=== PATIENT | female | born 1950 | race Caucasian/White ===

== ENCOUNTER → 2019-04-02 09:57 | Outpatient (CLI) | payer MEDICARE, SELFPAY ==
--- NOTE | 2019-04-02 | DI.RAD.S_ITS ---
PROCEDURE: XR SHOULDER LT MIN 2V INDICATIONS: Shoulder pain on the left TECHNIQUE: 3 views of the shoulder were acquired. COMPARISON: None. FINDINGS: Bones: No fractures or dislocations. No suspicious bony lesions. Visualized ribs appear intact. Soft tissues: No suspicious soft tissue calcifications. IMPRESSION: A small degree of a.c. joint osteoarthritis is present but no acute trauma or traumatic subluxation is seen. Dictated by: Demario Huff M.D. on 04/02/2019 at 11:10 Approved by: Demario Huff M.D. on 04/02/2019 at 11:10
--- NOTE | 2019-04-02 | DI.RAD.S_ITS ---
PROCEDURE: XR HIP W PEL IF DONE RT 2V INDICATIONS: hip pain TECHNIQUE: AP pelvis with lateral view(s) of the right hip(s). COMPARISON: [facility], , PELVIC COMPLETE, 08/01/2017, 11:33. FINDINGS: Bones: No fractures or dislocations. Pelvic ring appears intact. No suspicious bony lesions. Soft tissues: The visualized bowel gas pattern is normal. No suspicious soft tissue calcifications. IMPRESSION: No trauma to the right hip, mild symmetric hip joint osteoarthritis from the comparison plain film imaging present bilaterally. Dictated by: Demario Huff M.D. on 04/02/2019 at 11:11 Approved by: Demario Huff M.D. on 04/02/2019 at 11:12
--- NOTE | 2019-04-02 | DI.CT.S_ITS ---
PROCEDURE: CT HEAD/BRAIN WO/W CON INDICATIONS: vertigo TECHNIQUE: 4.5 mm thick angled axial sections acquired from the foramen magnum to the vertex before and after the administration of intravenous contrast, with coronal and sagittal reformats. For radiation dose reduction, the following was used: automated exposure control, adjustment of mA and/or kV according to patient size. COMPARISON: None. FINDINGS: Image quality: There is streak artifact seen. CSF Spaces: Basal cisterns are patent. No extra-axial fluid collections. Ventricles are normal in size and shape. Brain: Right sided aneurysm clips are seen, with associated streak artifact. There is a focus of brain parenchymal volume loss is seen involving the posterior right frontal lobe, surrounding encephalomalacia/gliotic change. No midline shift. No intracranial bleeds or masses. No abnormal intracranial enhancement. Johnson-white interface appears normal. Skull and face: Right sided craniotomy changes are seen. Calvarium and visualized facial bones appear intact, without suspicious lesions. Sinuses: Visualized sinuses and mastoids are clear. IMPRESSION: No acute abnormality is seen. No abnormal enhancement is seen. No masses are seen. Right frontal lobe brain parenchymal volume loss with surrounding encephalomalacia/gliotic change seen. 3 right-sided aneurysm clips are seen. Dictated by: Adin Killian M.D. on 04/02/2019 at 12:02 Approved by: Adin Killian M.D. on 04/02/2019 at 12:05
--- NOTE | 2019-04-02 | DI.RAD.S_ITS ---
PROCEDURE: XR FOOT LT MIN 3V INDICATIONS: foot pain TECHNIQUE: 3 views of the foot were acquired. COMPARISON: [facility], CR, FOOT 2V LEFT, 05/07/2014, 17:37. FINDINGS: Bones: No previously unidentified fractures or dislocations, and the prior fractures across the distal diaphysis of the third fourth and fifth metatarsal bones have healed with no worsening of malalignment previously present.. No suspicious bony lesions. Soft tissues: No tibiotalar joint effusion. Achilles tendon appears normal. IMPRESSION: The patient has suffered prior fractures across the distal metatarsal bones of the third, fourth and fifth rays. The most prominently displaced fracture was at the fifth metatarsal and angulation abnormality during healing is preserved on the current study is same degree that was present acutely. This could predispose to pain, however. Dictated by: Demario Huff M.D. on 04/02/2019 at 11:12 Approved by: Demario Huff M.D. on 04/02/2019 at 11:14
[2019-04-02 11:53] LABS: Blood Urea Nitrogen 20 mg/dL (7-17); Calcium 9.5 mg/dL (8.4-10.2); Carbon Dioxide 28 mmol/L (22-32); Chloride 103 mmol/L (98-107); Estimated Glomerular Filt Rate > 60.0 mL/min (>60); Glucose 215 mg/dL (80-110); HEMOLYSIS < 15 (0-50); Potassium 4.7 mmol/L (3.4-5.1); Sodium 140 mmol/L (137-145)
== END ==
PROVIDERS: Family Provider Family Medicine; PCP Family Medicine; Visit Provider Family Medicine
DX: C54.1 Malignant neoplasm of endometrium (principal); R42 Dizziness and giddiness; M25.512 Pain in left shoulder; M19.012 Primary osteoarthritis, left shoulder; M25.551 Pain in right hip; M16.11 Unilateral primary osteoarthritis, right hip; M79.672 Pain in left foot; G89.29 Other chronic pain; Z87.81 Personal history of (healed) traumatic fracture
CPT/HCPCS: 36415; 70470; 73030; 73502; 73630; 80048; Q9967

== ENCOUNTER 2019-05-13 23:10 | Inpatient (IN) | payer MEDICARE, SELFPAY ==
--- NOTE | 2019-05-13 23:13 | DI.CT.S_ITS ---
PROCEDURE: CT HEAD/BRAIN WO CON INDICATIONS: stroke symptoms, history of prior stroke TECHNIQUE: Noncontrast 4.5 mm thick angled axial sections acquired from the foramen magnum to the vertex, with coronal and sagittal reformats. For radiation dose reduction, the following was used: automated exposure control, adjustment of mA and/or kV according to patient size. COMPARISON: [facility], CT, CT HEAD/BRAIN WO/W CON, 04/02/2019, 12:11. FINDINGS: Image quality: Excellent. CSF spaces: Basal cisterns are patent. No extra-axial fluid collections. The ventricles are stable in size and shape. There is expected postsurgical change of aneurysm clipping on the right and craniotomy over the temporal region with underlying encephalomalacia associated with prior presumed hemorrhagic stroke in that area. Brain: No intracranial bleeds or masses. There is cerebral volume loss for age, with resultant ventricular and sulcal prominence. There are periventricular and deep white matter chronic small vessel ischemic changes. There is intracranial internal carotid artery atherosclerosis. Skull and face: Calvarium and visualized facial bones appear intact, without suspicious lesions. Sinuses: Visualized sinuses and mastoids are clear. IMPRESSION: No new abnormality is found, no new hemorrhage is identified. Stable postsurgical changes of aneurysm clipping and also stable appearance of previously present moderately severe right hemispheric encephalomalacia after presumed aneurysm related hemorrhagic stroke. Dictated by: Demario Huff M.D. on 05/14/2019 at 1:09 Approved by: Demario Huff M.D. on 05/14/2019 at 1:11
[2019-05-13 23:18] VITALS: BP 164/93; PULSE 99; RESP 16; TEMP 36.5; O2SAT 97; BMI 35.4
[2019-05-13 23:30] LABS: Add Manual Diff / Slide Review NO; Basophils Absolute Auto 100 /uL (0-100); Basophils Percent Auto 0.6 % (0-2); Eosinophils Absolute Auto 200 /uL (0-450); Hematocrit 45.2 % (36-46); Hemoglobin 15.1 g/dL (12.0-16.0); Lymphocytes Absolute Auto 2400 /uL (1100-4500); Lymphocytes Percent Auto 23.8 % (25-40); Mean Corpuscular HGB Conc 33.4 % (30-36); Mean Corpuscular Hemoglobin 31.1 PG (26-34); Mean Corpuscular Volume 93.1 fL (80-100); Monocytes Absolute Auto 600 /uL (0-900); Monocytes Percent Auto 5.7 % (3-14); Neutrophils Absolute Auto 7000 /uL (1500-7000); Neutrophils Percent Auto 67.9 % (50-75); Platelet Count 277 X10^3/uL (150-400); Red Blood Cell Count 4.86 X10^6/uL (4.0-5.2); Red Cell Distribution Width 13.5 % (11.6-14.8); White Blood Cell Count 10.2 X10^3/uL (4.5-11.0)
[2019-05-13 23:36] LABS: Prothrombin Time 11.2 SECONDS (10.1-12.7)
[2019-05-13 23:39] LABS: PTT Partial Thromboplastin Tim 33 SECONDS (26.4-36.2)
[2019-05-13 23:40] LABS: BUN Creatinine Ratio 37.1 (6-22); Blood Urea Nitrogen 26 mg/dL (7-17); Calcium 9.1 mg/dL (8.4-10.2); Carbon Dioxide 31 mmol/L (22-32); Chloride 101 mmol/L (98-107); Estimated Glomerular Filt Rate > 60.0 mL/min (>60); Glucose 183 mg/dL (80-110); HEMOLYSIS < 15 (0-50); Potassium 4.7 mmol/L (3.4-5.1); Sodium 138 mmol/L (137-145)
--- NOTE | 2019-05-13 23:58 | ED.NEUROSD ---
HPI - Neuro Symptoms/Deficit General Chief Complaint: Neuro Symptoms/Deficit Stated Complaint: possible stroke - sent by [facility] Time Seen by Provider: 05/13/19 23:12 Source: patient Mode of arrival: ambulatory Limitations: no limitations History of Present Illness HPI Narrative: 69-year-old female nonsmoker with history of cerebral aneurysm status wrist repair and subsequent left-sided stroke symptoms from many years ago presents with new onset stroke symptoms noted upon waking this morning. She felt in her normal state of health last night and upon waking today noticed that she was speaking a bit different than normal and had a much more difficult time ambulating, as a consequence of left leg feeling funny. She denies any injuries nor fever or chills. It was not until this evening when her roommate came home that she decided to be seen. She did not meet stroke activation criteria Onset (ago): hour(s) Location: speech, left face and ataxia History of same: Yes Severity: moderate Quality: weak and tingling Relieving factors: none Exacerbating factors: none On Anticoagulants: No Associated symptoms: denies other symptoms Treatments Prior to Arrival: none Related Data Home Medications Medication Instructions Recorded Confirmed Lidocaine Pain Relief 1 patch TOPICAL DAILY PRN 05/14/19 05/14/19 acetaminophen [Tylenol Extra 1,000 mg PO TID 05/14/19 05/14/19 Strength] cyclobenzaprine 1 tab PO BID PRN 05/14/19 05/14/19 hydrocodone-acetaminophen 1 tab PO Q6HP PRN 05/14/19 05/14/19 hydrocodone-acetaminophen 1 tab PO Q6HP PRN 05/14/19 05/14/19 Previous Rx's Medication Instructions Recorded naproxen 1 tab PO BIDCC #60 tab 10/19/16 venlafaxine 225 mg PO QDAY #270 tab 10/19/16 gabapentin [Neurontin] 400 cap PO SEE INSTRUCTIONS #150 04/18/17 cap aspirin 81 mg PO DAILY #30 tab 05/14/19 atorvastatin 40 mg PO BEDTIME #30 tab 05/14/19 Allergies Allergy/AdvReac Type Severity Reaction Status Date / Time phenytoin [From DILANTIN] Allergy Mild hives Verified 05/13/19 23:22 TB skin test Allergy Mild skin Uncoded 01/04/18 12:26 reaction Review of Systems Constitutional Denies chills, Denies fever(s), Denies lethargy and Denies weakness Eyes Denies change in vision, Denies eye discharge, Denies irritation and Denies loss of vision ENT Ears, Nose, Mouth, and Throat: Denies change in voice, Denies neck pain and Denies sore throat Cardiovascular Denies chest pain, Denies irregular heart rhythm, Denies lightheadedness, Denies palpitations, Denies dyspnea, Denies dyspnea on exertion and Denies orthopnea Respiratory Denies cough, Denies dyspnea, Denies dyspnea on exertion and Denies wheezing Gastrointestinal Gastrointestinal: Denies abdominal pain, Denies change in bowel habits, Denies diarrhea, Denies nausea and Denies vomiting Genitourinary Denies hematuria, Denies flank pain, Denies urinary incontinence and Denies urinary urgency Musculoskeletal Denies neck pain Integumentary/Breasts Denies pruritus, Denies erythema, Denies rash and Denies wounds Neurologic Denies confusion, Denies loss of vision and Denies weakness Psychiatric Denies anxiety, Denies confusion, Denies depression, Denies homicidal ideation and Denies suicidal ideation Endocrine Denies palpitations Hematologic/Lymphatic Denies easy bruising Allergic/Immunologic Denies wheezing FOR[facility]LY [facility] Medical History Chronic back pain (Chronic 1966) Depression (Chronic 2002) Foot pain (Chronic 2013) Hayfever (Chronic 1974) History of stroke with current residual effects (Chronic 04/18/01) Lichen sclerosus et atrophicus of the vulva (Chronic) Lumbar spine pain (Chronic) Migraines (Chronic ~1989) Osteoporosis (Chronic) Peripheral neuropathy (Chronic) Radiculopathy (Chronic) Urinary incontinence (Chronic 2000) Vertigo, central (Chronic 2000) Cataracts, bilateral (Resolved) Cerebral aneurysm (Resolved 04/18/01) Chicken pox (Resolved ~1954) Colon polyps (Resolved 2000) 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) Fractures (Resolved 2013) Measles (Resolved ~1954) Mumps (Resolved ~1954) PMB (postmenopausal bleeding) (Resolved ~2009) Rubella (Resolved ~1954) Surgical History History of colonoscopy with polypectomy (Resolved 2000) History of craniotomy (Resolved 04/18/01) History of phacoemulsification of cataract of left eye with intraocular lens implantation (Resolved 11/15/17) History of phacoemulsification of cataract of right eye with intraocular lens implantation (Resolved 11/01/17) History of total hysterectomy with bilateral salpingo-oophorectomy (BSO) (Resolved 09/28/17) S/P total hysterectomy and bilateral salpingo-oophorectomy (Resolved ~09/28/17) Social History household members: friend(s) Smoking Status: Current every day smoker Family History (Updated 05/14/19 @ 02:28 by ARELI Rod) Father Lung disease Mother Colon cancer Sister Diabetes mellitus Uterine cancer Son No problems noted. Social History household members: friend(s) Smoking Status: Current every day smoker Exam Narrative Exam Narrative: GENERAL: [69] year old patient appears stated age. Well-nourished, well-developed patient, in mild distress. HEAD: Atraumatic. Normocephalic. EYES: Pupils equal round and reactive. Extraocular motions intact. No scleral icterus. No injection or drainage. ENT: Nose without bleeding, purulent drainage. Throat without erythema, tonsillar hypertrophy or exudate. Airway patent. NECK: Trachea midline. Non tender CARDIOVASCULAR: Regular rate and rhythm without murmurs, gallops, or rubs. RESPIRATORY: Clear to auscultation. Breath sounds equal bilaterally. No wheezes, rales, or rhonchi. GASTROINTESTINAL: Abdomen soft, non-tender, nondistended. EXTREMITIES: No edema or joint tenderness. BACK: Nontender without deformity or crepitance. No flank tenderness. NEURO: AOx3. SKIN: No rash or erythema of visible areas Initial Vital Signs Initial Vital Signs: Vital Signs Temperature 97.7 F 05/13/19 23:18 Pulse Rate 99 H 05/13/19 23:18 Respiratory Rate 16 05/13/19 23:18 Blood Pressure 164/93 H 05/13/19 23:18 Pulse Oximetry 97 05/13/19 23:18 Scores NIH Stroke Scale Level of Conciousness: Alert, keenly responsive Ask month/age: Answers both questions correctly. Open/close eyes, close hand: Performs both tasks correctly Best gaze horizontal: Normal Visual valenzuela: No visual loss Facial palsy: Minor paralysis, flattened nasolabial fold, asymmetry on smiling Left arm drift: Drifts down, not to bed Right arm drift: No drift for full 10 sec Left leg drift: No drift for full 10 sec Right leg drift: No drift for full 10 sec Limb ataxia: Present in one limb Sensory on face/arms/legs: Mild to moderate sensory loss, can tell touch Best language: No aphasia, normal Dysarthria: Mild to mod,some slurring Extinction or inattention: No abnormality Total NIH Stroke scale score: 5 Course Orders Ordered: ED Orders 05/14/19 10:54 CT angio neck Urgent Discontinued Medications Hydrocodone Bitart/Acetaminophen ([place] 10/325) 1 tab PO NOW ONE Stop: 05/14/19 15:27 Last Admin: 05/14/19 15:37 Dose: 1 tab Aspirin (Aspirin Chew) 324 mg PO NOW ONE Stop: 05/14/19 00:27 Last Admin: 05/14/19 00:46 Dose: Not Given Aspirin (Aspirin Ec) 81 mg PO DAILY [facility] Last Admin: 05/14/19 09:18 Dose: Not Given Atorvastatin Calcium (Lipitor) 20 mg PO BEDTIME [facility] Hydromorphone HCl (Dilaudid) 0.5 mg IV Q6H PRN PRN Reason: Pain, Moderate (4-6) Hydromorphone HCl (Dilaudid) 1 mg IV Q6HR PRN PRN Reason: Pain, Severe (7-10) Last Admin: 05/14/19 09:19 Dose: 1 mg Admin: 05/14/19 02:38 Dose: 1 mg Sodium Chloride (Normal Saline 0.9%) 1,000 mls @ 125 mls/hr IV CONT [facility] Last Admin: 05/14/19 10:35 Dose: 125 mls/hr Infusion: 05/14/19 09:22 Dose: 125 mls/hr Infusion: 05/14/19 02:34 Dose: 125 mls/hr Infusion: 05/14/19 01:47 Dose: 0 mls/hr Admin: 05/14/19 00:47 Dose: 150 mls/hr Labetalol HCl (Trandate) 10 mg IV Q4HR PRN PRN Reason: Hypertension Naloxone HCl (Narcan) 0.2 mg IV Q2MIN PRN PRN Reason: Opiate Reversal Ondansetron HCl (Zofran) 4 mg IV Q8HR PRN PRN Reason: Nausea And Vomiting Oxycodone HCl (Percolone) 10 mg PO NOW ONE Stop: 05/14/19 15:10 Venlafaxine HCl (Effexor Xr) 225 mg PO DAILY [facility] Last Admin: 05/14/19 15:05 Dose: 225 mg Vital Signs - 8 hr 05/14/19 10:28 05/14/19 14:10 05/14/19 15:30 Temperature 98.2 F Pulse Rate 73 Respiratory Rate 18 Blood Pressure 198/106 H Pulse Oximetry 95 95 97 MDM - Neuro Symptoms/Deficit Lab Data Result diagrams: 05/13/19 23:20 05/14/19 05:45 Lab Results 05/13/19 05/13/19 05/13/19 Range/Units 23:20 23:20 23:20 WBC 10.2 (4.5-11.0) X10^3/uL RBC 4.86 (4.0-5.2) X10^6/uL Hgb 15.1 (12.0-16.0) g/dL Hct 45.2 (36-46) % MCV 93.1 (80-100) fL MCH 31.1 (26-34) PG MCHC 33.4 (30-36) % RDW 13.5 (11.6-14.8) % Plt Count 277 (150-400) X10^3/uL Neut % (Auto) 67.9 (50-75) % Lymph % (Auto) 23.8 L (25-40) % [place]kin % (Auto) 5.7 (3-14) % Eos % (Auto) 2.0 (2-4) % Baso % (Auto) 0.6 (0-2) % Neut # (Auto) 7000 (9165-9020) /uL Lymph # (Auto) 2400 (7383-2622) /uL L[place]kin # (Auto) 600 (0-900) /uL Eos # (Auto) 200 (0-450) /uL Baso # (Auto) 100 (0-100) /uL PT 11.2 (10.1-12.7) SECONDS INR 1.0 (0.9-1.3) APTT 33 (26.4-36.2) SECONDS Sodium 138 (137-145) mmol/L Potassium 4.7 (3.4-5.1) mmol/L Chloride 101 (98-107) mmol/L Carbon Dioxide 31 (22-32) mmol/L BUN 26 H (7-17) mg/dL Creatinine 0.70 (0.52-1.04) mg/dL Estimated GFR > 60.0 (>60) mL/min BUN/Creatinine Ratio 37.1 H (6-22) Glucose 183 H (80-110) mg/dL Hemoglobin A1c (4.0-6.0) % Calcium 9.1 (8.4-10.2) mg/dL Total Bilirubin (0.2-1.3) mg/dL AST (14-36) IU/L ALT (9-52) IU/L Alkaline Phosphatase (38-126) U/L Total Protein (6.3-8.2) g/dL Albumin (3.5-5.0) g/dL Globulin (1.7-4.1) g/dL Albumin/Globulin Ratio (1.0-2.8) Triglycerides (35-150) mg/dL Cholesterol (140-199) mg/dL LDL Cholesterol, Calc (<100) mg/dL HDL Cholesterol (40-60) mg/dL 05/14/19 05/14/19 Range/Units 05:45 05:45 WBC (4.5-11.0) X10^3/uL RBC (4.0-5.2) X10^6/uL Hgb (12.0-16.0) g/dL Hct (36-46) % MCV (80-100) fL MCH (26-34) PG MCHC (30-36) % RDW (11.6-14.8) % Plt Count (150-400) X10^3/uL Neut % (Auto) (50-75) % Lymph % (Auto) (25-40) % [place] % (Auto) (3-14) % Eos % (Auto) (2-4) % Baso % (Auto) (0-2) % Neut # (Auto) (7086-2060) /uL Lymph # (Auto) (6990-2338) /uL Lumpkin # (Auto) (0-900) /uL Eos # (Auto) (0-450) /uL Baso # (Auto) (0-100) /uL PT (10.1-12.7) SECONDS INR (0.9-1.3) APTT (26.4-36.2) SECONDS Sodium 139 (137-145) mmol/L Potassium 4.4 (3.4-5.1) mmol/L Chloride 104 (98-107) mmol/L Carbon Dioxide 29 (22-32) mmol/L BUN 20 H (7-17) mg/dL Creatinine 0.60 (0.52-1.04) mg/dL Estimated GFR > 60.0 (>60) mL/min BUN/Creatinine Ratio 33.3 H (6-22) Glucose 136 H (80-110) mg/dL Hemoglobin A1c 7.5 H (4.0-6.0) % Calcium 8.5 (8.4-10.2) mg/dL Total Bilirubin 0.7 (0.2-1.3) mg/dL AST 29 (14-36) IU/L ALT 33 (9-52) IU/L Alkaline Phosphatase 80 (38-126) U/L Total Protein 6.5 (6.3-8.2) g/dL Albumin 3.6 (3.5-5.0) g/dL Globulin 2.9 (1.7-4.1) g/dL Albumin/Globulin Ratio 1.2 (1.0-2.8) Triglycerides 266 H (35-150) mg/dL Cholesterol 213 H (140-199) mg/dL LDL Cholesterol, Calc 130 H (<100) mg/dL HDL Cholesterol 30 L (40-60) mg/dL Imaging Data CT scan - head: Radiologist's impression: Lesley Finney 69 F 1950 [place] [address] CT Scan Report Signed Patient: Lesley FinneyMR#: [id number] : 8Acct:[id number] Age/Sex: 69 / FDate of Service: 05/13/19 Loc: [id number]-0 Accession Number: [id number] Procedure: CT head/brain wo con Ordering Provider: Waqas Hess D.O. PROCEDURE: CT HEAD/BRAIN WO CON INDICATIONS: stroke symptoms, history of prior stroke TECHNIQUE: Noncontrast 4.5 mm thick angled axial sections acquired from the foramen magnum to the vertex, with coronal and sagittal reformats. For radiation dose reduction, the following was used: automated exposure control, adjustment of mA and/or kV according to patient size. COMPARISON: [facility], CT, CT HEAD/BRAIN WO/W CON, 04/02/2019, 12:11. FINDINGS: Image quality: Excellent. CSF spaces: Basal cisterns are patent. No extra-axial fluid collections. The ventricles are stable in size and shape. There is expected postsurgical change of aneurysm clipping on the right and craniotomy over the temporal region with underlying encephalomalacia associated with prior presumed hemorrhagic stroke in that area. Brain: No intracranial bleeds or masses. There is cerebral volume loss for age, with resultant ventricular and sulcal prominence. There are periventricular and deep white matter chronic small vessel ischemic changes. There is intracranial internal carotid artery atherosclerosis. Skull and face: Calvarium and visualized facial bones appear intact, without suspicious lesions. Sinuses: Visualized sinuses and mastoids are clear. IMPRESSION: No new abnormality is found, no new hemorrhage is identified. Stable postsurgical changes of aneurysm clipping and also stable appearance of previously present moderately severe right hemispheric encephalomalacia after presumed aneurysm related hemorrhagic stroke. Dictated by: Demario Huff M.D. on 05/14/2019 at 1:09 Approved by: Demario Huff M.D. on 05/14/2019 at 1:11 Discharge Plan Departure Patient Disposition: Admitted As Inpatient Clinical Impression: Cerebrovascular accident Qualifiers: CVA mechanism: unspecified Qualified Code(s): I63.9 - Cerebral infarction, unspecified Discharge Date/Time: 05/14/19 01:40 Interventions: ED Discharge Assessment Last Done: 05/14/19 01:21 Admit Date/Time: 05/14/19 00:49 Admit Provider: Champ Hanks
[2019-05-14] VITALS (10 sets, daily range): BP systolic 156–198; BP diastolic 65–106; PULSE 70–89; RESP 11–21; TEMP 36.6–36.8; O2SAT 94–99; BMI 35.4
--- NOTE | 2019-05-14 | DI.ECHO.S_ITS ---
[place] [facility]---------+ [facility] +---------+ : : [address] : : : : [id number] : : : : Phone: [phone]+ Echocardiogram Report + + :Name: EASTON GARZA Study Date: 05/14/2019 Height: 64 in : :[facility] Weight: 200 lb : : Gender: Female BSA: 2.0 m2 : :: 1950 Age: 69 yrs BP: 181/76 mmHg: :Reason For Study: CVA : : Performed By: Karla Pruitt : :Referring: KRISTINE TOBIN : + + Interpretation Summary 1) Normal left ventricular thickness, size, wall motion, and systolic function (EF 60-65%). 2) Normal right ventricular size and function. 3) No significant valvular abnormalities. 4) Injection of contrast documented no interatrial shunt. 5) No prior Echo available for comparison. Procedure: A two-dimensional transthoracic echocardiogram with color flow and Doppler was performed. The study quality was technically adequate. There is no prior echocardiogram noted for this patient. The patient was in normal sinus rhythm during the exam. Left Ventricle: The left ventricle is normal in size, wall thickness, and systolic function without any focal wall motion abnormalities. The ejection fraction is estimated to be 60-65%. Septal bounce present. Diastolic parameters suggest a relaxation abnormality of the left ventricle, consistent with probable normal filling pressures. Right Ventricle: The right ventricle is not well visualized. Atria: The left atrium is moderately dilated. Right atrial size is normal. Injection of contrast documented no interatrial shunt. Mitral Valve: The mitral valve is normal in structure and function. There is no mitral regurgitation noted. Aortic Valve: The aortic valve opens well. There is no aortic valve stenosis. No aortic regurgitation is present. Tricuspid Valve: The tricuspid valve is normal in structure and function. There is trace tricuspid regurgitation. The right ventricular systolic pressure is estimated to be at least 16 mmHg based on an estimated right atrial pressure of 3 mm Hg. Pulmonic Valve: The pulmonic valve is not well visualized. Great Vessels: The aortic root is normal size. The dimensions of the ascending aorta are normal. The IVC is of normal diameter and collapses greater than 50% with a sniff. This suggests a low right atrial pressure of 3 mm Hg. Pericardium/ Pleura There is no pericardial effusion. There is no pleural effusion. MMode/2D Measurements & Calculations LVIDd: 5.3 cm Ao root diam: 3.2 cm LVIDs: 3.2 cm Aortic Jxn: 2.3 cm FS: 39.3 % asc Aorta Diam: 2.9 cm IVSd: 0.99 cm LVPWd: 0.80 cm LV castaneda. diameter/BSA (cm/m^2): 2.7 LV sys. diameter/BSA (cm/m^2): 1.7 LA dimension: 3.8 cm RA long axis: 4.6 cm LA A2 area: 21.5 cm2 RA area: 14.2 cm2 LA A4 area: 22.3 cm2 RA vol: 37.0 ml LA length (vol): 5.7 cm RA : 18.9 ml/m2 LA vol: 71.8 ml IVC diam: 1.9 cm LA vol index: 36.7 ml/m2 RVDd major: 4.3 cm RVD1 (basal): 2.7 cm RVD2 (mid): 2.1 cm Doppler Measurements & Calculations Ao V2 max: 136.9 cm/sec MV E max carlos: 72.4 cm/sec Ao V2 mean: 85.0 cm/sec MV A max carlos: 102.3 cm/sec Ao max P.5 mmHg MV E/A: 0.71 Ao mean P.5 mmHg Med Peak E' Carlos: 5.3 cm/sec Ao V2 VTI: 28.8 cm E/E' med: 13.7 Lat Peak E' Carlos: 8.0 cm/sec E/E' lat: 9.0 E/e' average: 11.4 MV dec time: 0.22 sec MV P1/2t: 66.0 msec TR max carlos: 180.3 cm/sec MV P1/2t max carlos: 72.8 cm/sec TR max P.0 mmHg MVA(P1/2t): 3.3 cm2 PA V2 max: 118.2 cm/sec PA V2 mean: 76.2 cm/sec PA mean P.7 mmHg PA Accel Time: 0.10 sec Reading Physician:12:12 PM
--- NOTE | 2019-05-14 00:01 | ED_ITS ---
HPI - Neuro Symptoms/Deficit General Chief Complaint: Neuro Symptoms/Deficit Stated Complaint: possible stroke - sent by [facility] Time Seen by Provider: 05/13/19 23:12 Source: patient Mode of arrival: ambulatory Limitations: no limitations History of Present Illness HPI Narrative: 69-year-old female nonsmoker with history of cerebral aneurysm status wrist repair and subsequent left-sided stroke symptoms from many years ago presents with new onset stroke symptoms noted upon waking this morning. She felt in her normal state of health last night and upon waking today noticed that she was speaking a bit different than normal and had a much more difficult time ambulating, as a consequence of left leg feeling funny. She denies any injuries nor fever or chills. It was not until this evening when her roommate came home that she decided to be seen. She did not meet stroke activation criteria Onset (ago): hour(s) Location: speech, left face and ataxia History of same: Yes Severity: moderate Quality: weak and tingling Relieving factors: none Exacerbating factors: none On Anticoagulants: No Associated symptoms: denies other symptoms Treatments Prior to Arrival: none Related Data Home Medications Medication Instructions Recorded Confirmed Lidocaine Pain Relief 1 patch TOPICAL DAILY PRN 05/14/19 05/14/19 acetaminophen [Tylenol Extra 1,000 mg PO TID 05/14/19 05/14/19 Strength] cyclobenzaprine 1 tab PO BID PRN 05/14/19 05/14/19 hydrocodone-acetaminophen 1 tab PO Q6HP PRN 05/14/19 05/14/19 hydrocodone-acetaminophen 1 tab PO Q6HP PRN 05/14/19 05/14/19 Previous Rx's Medication Instructions Recorded naproxen 1 tab PO BIDCC #60 tab 10/19/16 venlafaxine 225 mg PO QDAY #270 tab 10/19/16 gabapentin [Neurontin] 400 cap PO SEE INSTRUCTIONS #150 04/18/17 cap aspirin 81 mg PO DAILY #30 tab 05/14/19 atorvastatin 40 mg PO BEDTIME #30 tab 05/14/19 Allergies Allergy/AdvReac Type Severity Reaction Status Date / Time phenytoin [From DILANTIN] Allergy Mild hives Verified 05/13/19 23:22 TB skin test Allergy Mild skin Uncoded 01/04/18 12:26 reaction Review of Systems Constitutional Denies chills, Denies fever(s), Denies lethargy and Denies weakness Eyes Denies change in vision, Denies eye discharge, Denies irritation and Denies loss of vision ENT Ears, Nose, Mouth, and Throat: Denies change in voice, Denies neck pain and Denies sore throat Cardiovascular Denies chest pain, Denies irregular heart rhythm, Denies lightheadedness, Denies palpitations, Denies dyspnea, Denies dyspnea on exertion and Denies orthopnea Respiratory Denies cough, Denies dyspnea, Denies dyspnea on exertion and Denies wheezing Gastrointestinal Gastrointestinal: Denies abdominal pain, Denies change in bowel habits, Denies diarrhea, Denies nausea and Denies vomiting Genitourinary Denies hematuria, Denies flank pain, Denies urinary incontinence and Denies urinary urgency Musculoskeletal Denies neck pain Integumentary/Breasts Denies pruritus, Denies erythema, Denies rash and Denies wounds Neurologic Denies confusion, Denies loss of vision and Denies weakness Psychiatric Denies anxiety, Denies confusion, Denies depression, Denies homicidal ideation and Denies suicidal ideation Endocrine Denies palpitations Hematologic/Lymphatic Denies easy bruising Allergic/Immunologic Denies wheezing [facility], [facility] Medical History Chronic back pain (Chronic 1966) Depression (Chronic 2002) Foot pain (Chronic 2013) Hayfever (Chronic 1974) History of stroke with current residual effects (Chronic 04/18/01) Lichen sclerosus et atrophicus of the vulva (Chronic) Lumbar spine pain (Chronic) Migraines (Chronic ~1989) Osteoporosis (Chronic) Peripheral neuropathy (Chronic) Radiculopathy (Chronic) Urinary incontinence (Chronic 2000) Vertigo, central (Chronic 2000) Cataracts, bilateral (Resolved) Cerebral aneurysm (Resolved 04/18/01) Chicken pox (Resolved ~1954) Colon polyps (Resolved 2000) 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) Fractures (Resolved 2013) Measles (Resolved ~1954) Mumps (Resolved ~1954) PMB (postmenopausal bleeding) (Resolved ~2009) Rubella (Resolved ~1954) Surgical History History of colonoscopy with polypectomy (Resolved 2000) History of craniotomy (Resolved 04/18/01) History of phacoemulsification of cataract of left eye with intraocular lens implantation (Resolved 11/15/17) History of phacoemulsification of cataract of right eye with intraocular lens implantation (Resolved 11/01/17) History of total hysterectomy with bilateral salpingo-oophorectomy (BSO) (Resolved 09/28/17) S/P total hysterectomy and bilateral salpingo-oophorectomy (Resolved ~09/28/17) Social History household members: friend(s) Smoking Status: Current every day smoker Family History (Updated 05/14/19 @ 02:28 by ARELI Rod) Father Lung disease Mother Colon cancer Sister Diabetes mellitus Uterine cancer Son No problems noted. Social History household members: friend(s) Smoking Status: Current every day smoker Exam Narrative Exam Narrative: GENERAL: [69] year old patient appears stated age. Well- nourished, well-developed patient, in mild distress. HEAD: Atraumatic. Normocephalic. EYES: Pupils equal round and reactive. Extraocular motions intact. No scleral icterus. No injection or drainage. ENT: Nose without bleeding, purulent drainage. Throat without erythema, tonsillar hypertrophy or exudate. Airway patent. NECK: Trachea midline. Non tender CARDIOVASCULAR: Regular rate and rhythm without murmurs, gallops, or rubs. RESPIRATORY: Clear to auscultation. Breath sounds equal bilaterally. No wheezes, rales, or rhonchi. GASTROINTESTINAL: Abdomen soft, non-tender, nondistended. EXTREMITIES: No edema or joint tenderness. BACK: Nontender without deformity or crepitance. No flank tenderness. NEURO: AOx3. SKIN: No rash or erythema of visible areas Initial Vital Signs Initial Vital Signs: Vital Signs Temperature 97.7 F 05/13/19 23:18 Pulse Rate 99 H 05/13/19 23:18 Respiratory Rate 16 05/13/19 23:18 Blood Pressure 164/93 H 05/13/19 23:18 Pulse Oximetry 97 05/13/19 23:18 Scores NIH Stroke Scale Level of Conciousness: Alert, keenly responsive Ask month/age: Answers both questions correctly. Open/close eyes, close hand: Performs both tasks correctly Best gaze horizontal: Normal Visual valenzuela: No visual loss Facial palsy: Minor paralysis, flattened nasolabial fold, asymmetry on smiling Left arm drift: Drifts down, not to bed Right arm drift: No drift for full 10 sec Left leg drift: No drift for full 10 sec Right leg drift: No drift for full 10 sec Limb ataxia: Present in one limb Sensory on face/arms/legs: Mild to moderate sensory loss, can tell touch Best language: No aphasia, normal Dysarthria: Mild to mod,some slurring Extinction or inattention: No abnormality Total NIH Stroke scale score: 5 Course Orders Ordered: ED Orders 05/14/19 10:54 CT angio neck Urgent Discontinued Medications Hydrocodone Bitart/Acetaminophen ([place] 10/325) 1 tab PO NOW ONE Stop: 05/14/19 15:27 Last Admin: 05/14/19 15:37 Dose: 1 tab Aspirin (Aspirin Chew) 324 mg PO NOW ONE Stop: 05/14/19 00:27 Last Admin: 05/14/19 00:46 Dose: Not Given Aspirin (Aspirin Ec) 81 mg PO DAILY [facility] Last Admin: 05/14/19 09:18 Dose: Not Given Atorvastatin Calcium (Lipitor) 20 mg PO BEDTIME [facility] Hydromorphone HCl (Dilaudid) 0.5 mg IV Q6H PRN PRN Reason: Pain, Moderate (4-6) Hydromorphone HCl (Dilaudid) 1 mg IV Q6HR PRN PRN Reason: Pain, Severe (7-10) Last Admin: 05/14/19 09:19 Dose: 1 mg Admin: 05/14/19 02:38 Dose: 1 mg Sodium Chloride (Normal Saline 0.9%) 1,000 mls @ 125 mls/hr IV CONT [facility] Last Admin: 05/14/19 10:35 Dose: 125 mls/hr Infusion: 05/14/19 09:22 Dose: 125 mls/hr Infusion: 05/14/19 02:34 Dose: 125 mls/hr Infusion: 05/14/19 01:47 Dose: 0 mls/hr Admin: 05/14/19 00:47 Dose: 150 mls/hr Labetalol HCl (Trandate) 10 mg IV Q4HR PRN PRN Reason: Hypertension Naloxone HCl (Narcan) 0.2 mg IV Q2MIN PRN PRN Reason: Opiate Reversal Ondansetron HCl (Zofran) 4 mg IV Q8HR PRN PRN Reason: Nausea And Vomiting Oxycodone HCl (Percolone) 10 mg PO NOW ONE Stop: 05/14/19 15:10 Venlafaxine HCl (Effexor Xr) 225 mg PO DAILY [facility] Last Admin: 05/14/19 15:05 Dose: 225 mg Vital Signs - 8 hr 05/14/19 10:28 05/14/19 14:10 05/14/19 15:30 Temperature 98.2 F Pulse Rate 73 Respiratory Rate 18 Blood Pressure 198/106 H Pulse Oximetry 95 95 97 MDM - Neuro Symptoms/Deficit Lab Data Result diagrams: 05/13/19 23:20 05/14/19 05:45 Lab Results 05/13/19 05/13/19 05/13/19 Range/Units 23:20 23:20 23:20 WBC 10.2 (4.5-11.0) X10^3/uL RBC 4.86 (4.0-5.2) X10^6/uL Hgb 15.1 (12.0-16.0) g/dL Hct 45.2 (36-46) % MCV 93.1 (80-100) fL MCH 31.1 (26-34) PG MCHC 33.4 (30-36) % RDW 13.5 (11.6-14.8) % Plt Count 277 (150-400) X10^3/uL Neut % (Auto) 67.9 (50-75) % Lymph % (Auto) 23.8 L (25-40) % [place] % (Auto) 5.7 (3-14) % Eos % (Auto) 2.0 (2-4) % Baso % (Auto) 0.6 (0-2) % Neut # (Auto) 7000 (6747-8844) /uL Lymph # (Auto) 2400 (1683-7088) /uL [place] # (Auto) 600 (0-900) /uL Eos # (Auto) 200 (0-450) /uL Baso # (Auto) 100 (0-100) /uL PT 11.2 (10.1-12.7) SECONDS INR 1.0 (0.9-1.3) APTT 33 (26.4-36.2) SECONDS Sodium 138 (137-145) mmol/L Potassium 4.7 (3.4-5.1) mmol/L Chloride 101 (98-107) mmol/L Carbon Dioxide 31 (22-32) mmol/L BUN 26 H (7-17) mg/dL Creatinine 0.70 (0.52-1.04) mg/dL Estimated GFR > 60.0 (>60) mL/min BUN/Creatinine Ratio 37.1 H (6-22) Glucose 183 H (80-110) mg/dL Hemoglobin A1c (4.0-6.0) % Calcium 9.1 (8.4-10.2) mg/dL Total Bilirubin (0.2-1.3) mg/dL AST (14-36) IU/L ALT (9-52) IU/L Alkaline Phosphatase (38-126) U/L Total Protein (6.3-8.2) g/dL Albumin (3.5-5.0) g/dL Globulin (1.7-4.1) g/dL Albumin/Globulin Ratio (1.0-2.8) Triglycerides (35-150) mg/dL Cholesterol (140-199) mg/dL LDL Cholesterol, Calc (<100) mg/dL HDL Cholesterol (40-60) mg/dL 05/14/19 05/14/19 Range/Units 05:45 05:45 WBC (4.5-11.0) X10^3/uL RBC (4.0-5.2) X10^6/uL Hgb (12.0-16.0) g/dL Hct (36-46) % MCV (80-100) fL MCH (26-34) PG MCHC (30-36) % RDW (11.6-14.8) % Plt Count (150-400) X10^3/uL Neut % (Auto) (50-75) % Lymph % (Auto) (25-40) % [place] % (Auto) (3-14) % Eos % (Auto) (2-4) % Baso % (Auto) (0-2) % Neut # (Auto) (4503-1664) /uL Lymph # (Auto) (1915-9665) /uL [place] # (Auto) (0-900) /uL Eos # (Auto) (0-450) /uL Baso # (Auto) (0-100) /uL PT (10.1-12.7) SECONDS INR (0.9-1.3) APTT (26.4-36.2) SECONDS Sodium 139 (137-145) mmol/L Potassium 4.4 (3.4-5.1) mmol/L Chloride 104 (98-107) mmol/L Carbon Dioxide 29 (22-32) mmol/L BUN 20 H (7-17) mg/dL Creatinine 0.60 (0.52-1.04) mg/dL Estimated GFR > 60.0 (>60) mL/min BUN/Creatinine Ratio 33.3 H (6-22) Glucose 136 H (80-110) mg/dL Hemoglobin A1c 7.5 H (4.0-6.0) % Calcium 8.5 (8.4-10.2) mg/dL Total Bilirubin 0.7 (0.2-1.3) mg/dL AST 29 (14-36) IU/L ALT 33 (9-52) IU/L Alkaline Phosphatase 80 (38-126) U/L Total Protein 6.5 (6.3-8.2) g/dL Albumin 3.6 (3.5-5.0) g/dL Globulin 2.9 (1.7-4.1) g/dL Albumin/Globulin Ratio 1.2 (1.0-2.8) Triglycerides 266 H (35-150) mg/dL Cholesterol 213 H (140-199) mg/dL LDL Cholesterol, Calc 130 H (<100) mg/dL HDL Cholesterol 30 L (40-60) mg/dL Imaging Data CT scan - head: Radiologist's impression: Lesley Finney 69 [address] [place] [address] CT Scan Report Signed Patient: Lesley FinneyMR#: [id number] : 8Acct:[id number] Age/Sex: 69 / FDate of Service: 05/13/19 Loc: [id number] Accession Number: [id number] Procedure: CT head/brain wo con Ordering Provider: Waqas Hess D.O. PROCEDURE: CT HEAD/BRAIN WO CON INDICATIONS: stroke symptoms, history of prior stroke TECHNIQUE: Noncontrast 4.5 mm thick angled axial sections acquired from the foramen magnum to the vertex, with coronal and sagittal reformats. For radiation dose reduction, the following was used: automated exposure control, adjustment of mA and/or kV according to patient size. COMPARISON: [facility], CT, CT HEAD/BRAIN WO/W CON, 04/02/2019, 12:11. FINDINGS: Image quality: Excellent. CSF spaces: Basal cisterns are patent. No extra-axial fluid collections. The ventricles are stable in size and shape. There is expected postsurgical change of aneurysm clipping on the right and craniotomy over the temporal region with underlying encephalomalacia associated with prior presumed hemorrhagic stroke in that area. Brain: No intracranial bleeds or masses. There is cerebral volume loss for age, with resultant ventricular and sulcal prominence. There are periventricular and deep white matter chronic small vessel ischemic changes. There is intracranial internal carotid artery atherosclerosis. Skull and face: Calvarium and visualized facial bones appear intact, without suspicious lesions. Sinuses: Visualized sinuses and mastoids are clear. IMPRESSION: No new abnormality is found, no new hemorrhage is identified. Stable postsurgical changes of aneurysm clipping and also stable appearance of previously present moderately severe right hemispheric encephalomalacia after presumed aneurysm related hemorrhagic stroke. Dictated by: Demario Huff M.D. on 05/14/2019 at 1:09 Approved by: Demario Huff M.D. on 05/14/2019 at 1:11 Discharge Plan Departure Patient Disposition: Admitted As Inpatient Clinical Impression: Cerebrovascular accident Qualifiers: CVA mechanism: unspecified Qualified Code(s): I63.9 - Cerebral infarction, unspecified Discharge Date/Time: 05/14/19 01:40 Interventions: ED Discharge Assessment Last Done: 05/14/19 01:21 Admit Date/Time: 05/14/19 00:49 Admit Provider: Champ Hanks
[2019-05-14] MEDS: SODIUM CHLORIDE 0.9% 1,000 ML 150 ML IV (00:47)
--- NOTE | 2019-05-14 01:48 | PC.NURSE ---
Pt was unable to continue in swallow eval, Provider Ryan Hanks notified, unable to give ASA.
--- NOTE | 2019-05-14 02:02 | DI.US.S_ITS ---
PROCEDURE: US CAROTID DOPPLER BI INDICATIONS: RIGHT BRUIT; CVA TECHNIQUE: Color and pulse Doppler interrogation was performed of both carotid systems, with image documentation and velocity measurements. COMPARISON: CTA head earlier today, non-contrast head CT 05/13/2019, 04/02/2019. FINDINGS: Stenosis calculations are based on SRU (Society of Radiologists in Ultrasound) criteria. Right side: Brachial blood pressure: 156/76 mm Hg. Common carotid artery peak systolic velocity: 54 cm/sec. Internal carotid artery peak systolic velocity: 383 cm/sec. Internal carotid artery end diastolic velocity: 69 cm/sec. External carotid artery peak systolic velocity: 117 cm/sec. ICA/CCA peak systolic ratio: 7.2. Johnson scale imaging description: No color-flow is detected in the mid ICA. There is extensive calcified atherosclerotic plaque. Calcified atherosclerotic plaque in the distal CCA. Percent internal carotid artery stenosis: 70% stenosis to near occlusion. Vertebral artery: Flow direction is antegrade. Left side: Brachial blood pressure: 181/76 mm Hg. Common carotid artery peak systolic velocity: 83 cm/sec. Internal carotid artery peak systolic velocity: 53 cm/sec. Internal carotid artery end diastolic velocity: 20 cm/sec. External carotid artery peak systolic velocity: 101 cm/sec. ICA/CCA peak systolic ratio: 0.6. Johnson scale imaging description: Mild plaque in the ICA appreciated. Mild calcified atherosclerotic plaque in the distal CCA. Percent internal carotid artery stenosis: Less than 50% stenosis. Vertebral artery: Flow direction is antegrade. IMPRESSION: 1. Right ICA 70% stenosis to near occlusion. -No color-flow is detected in the mid right ICA. However, on the subsequent CTA head IV contrast opacification is seen in the distal intracranial ICA. 2. Left ICA less than 50% stenosis. 3. Vertebral arteries demonstrates antegrade flow. Dictated by: Steve Lopez M.D. on 05/14/2019 at 9:04 Approved by: Steve Lopez M.D. on 05/14/2019 at 9:21
--- NOTE | 2019-05-14 02:10 | PM.HP.1 ---
History of Present Illness Date Patient Seen: 05/14/19 Time Patient Seen: 01:00 Chief complaint: possible stroke - sent by [facility] Narrative: Ms Lesley Finney is a 69-year-old female with a history significant for cerebral aneurysm and craniotomy 2000 with residual left-sided deficits, vertigo, migraines, chronic lumbar spine pain with radiculopathy, uterine cancer and current smoker who presents to the ER with tonight with new onset of difficulty speaking ataxia and facial droop. Patient reports going to bed last night feeling well and woke this morning with difficulty talking and enunciating words as well as ataxia failure feet were coordinated. The patient states she did not realize she was having a stroke until her friend came over about 5:00 p.m. and noted her facial droop at which time [facility] was summoned. The patient reports no complaints of headaches, dizziness though she does have history of vertigo or visual changes. She has had no recent illness or fevers or chills. She denies chest pain or palpitations. She denies shortness of breath and endorses a smoker's cough. She denies complaints of nausea vomiting, abdominal pain or constipation. She reports no dysuria. She has residual left-sided sensory and motor deficits following a right posterior frontal lobe aneurysm repair and craniotomy in 2000 at [facility] in [facility]. Upon arrival in the ER the patient was afebrile with a temperature 97.7?, heart rate 99, hypertensive with a blood pressure 164/93, respirations 16 saturating 97% on room air. CT scan of the brain is obtained finding encephalomalacia right frontal temporal region that is unchanged aneurysm clips right MCA, no intracranial hemorrhage, hydrocephalus or shift. Lab work obtained finds white cell count of 10.2, hemoglobin of 15.1, hematocrit 45.2 and platelets of 277. Coagulation reveals PT of 11.2 INR 1.0 and PTT of 33. Electrolytes are within normal range over as a BUN of of 26 and creatinine is 0.7 with a BUN creatinine ratio of 37.1 and a nonfasting glucose of 183. In the ER the patient was rated at a 5 on the NIH stroke scale. The patient failed a bedside swallow evaluation obtained in the ER. Patient will be administered aspirin 325 mg per rectum. The patient is admitted for acute CVA. 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) Fractures (Resolved 2013) Measles (Resolved ~1954) Mumps (Resolved ~1954) PMB (postmenopausal bleeding) (Resolved ~2009) Rubella (Resolved ~1954) Surgical History History of colonoscopy with polypectomy (Resolved 2000) History of craniotomy (Resolved 04/18/01) History of phacoemulsification of cataract of left eye with intraocular lens implantation (Resolved 11/15/17) History of phacoemulsification of cataract of right eye with intraocular lens implantation (Resolved 11/01/17) History of total hysterectomy with bilateral salpingo-oophorectomy (BSO) (Resolved 09/28/17) S/P total hysterectomy and bilateral salpingo-oophorectomy (Resolved ~09/28/17) Social History household members: friend(s) Smoking Status: Current every day smoker Family & Social History Family History (Updated 05/14/19 @ 02:28 by ARELI Rod) Father Lung disease Mother Colon cancer Sister Diabetes mellitus Uterine cancer Son No problems noted. Safety & Behavioral: Feels Safe in Current Yes Environment Tobacco & Substance use: Smoking Status Current every day smoker alcohol intake frequency holiday/special occasion Substance Use Type does not use Comment: The patient lives in a single family home non [facility] with her roommate Genet Lofton. She was previously and has been for 50 years. Her parents are both her father from complications of lung disease and her mother from colon cancer who had hemicolectomy. She has 1 sister with type 2 diabetes and uterine cancer. She had 1 son who from suicide. 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 Smoking: The patient continues to smoke 1 pack per day is done so on and off accumulating 40 pack year smoking history. Alcohol: Patient endorses consuming wine approximately 3 times per week. Substance use: Patient reports using a product she obtains from the marijuana shop but cannot name the substance. Advanced directives: In direct conversation with the patient she wishes to be a FULL CODE but indicates she does not want long-term life support. She designates her roommate Genet Lofton to be her surrogate decision maker. Meds Home Medications Medication Instructions Recorded Confirmed Type cyclobenzaprine 1 tab PO BID PRN #60 tab 10/19/16 Rx hydrocodone-acetaminophen 1 tab PO Q6HP PRN #270 tab 10/19/16 Rx naproxen 1 tab PO BIDCC #60 tab 10/19/16 Rx venlafaxine 225 mg PO QDAY #270 tab 10/19/16 Rx hydrocodone-acetaminophen 1 tab PO Q6HP PRN #270 tab 04/08/17 Rx gabapentin [Neurontin] 400 cap PO SEE INSTRUCTIONS #150 04/18/17 Rx cap tolterodine ER 4 mg 4 mg PO DAILY #30 cap 03/30/18 Rx capsule,extended release 24 hr Allergies Allergy/AdvReac Type Severity Reaction Status Date / Time phenytoin [From DILANTIN] Allergy Mild hives Verified 05/13/19 23:22 TB skin test Allergy Mild skin Uncoded 01/04/18 12:26 reaction Review of Systems Review of Systems All systems reviewed & are unremarkable except as noted in HPI and below Exam Vital Signs (past 8 hours): - 05/13/19 23:18 05/14/19 00:15 05/14/19 01:17 Temperature 97.7 F Pulse Rate 99 H 72 82 Respiratory Rate 16 11 L 19 Blood Pressure 164/93 H Blood Pressure [Left Arm] 172/75 H 159/65 H Pulse Oximetry 97 96 99 05/14/19 01:21 05/14/19 01:45 Temperature 97.9 F Pulse Rate 82 85 Respiratory Rate 16 21 Blood Pressure 159/65 H Blood Pressure [Left Arm] Pulse Oximetry 98 98 Oxygen Delivery Method Room Air Oxygen Flow Rate 0 Narrative Exam Narrative: GENERAL APPEARANCE: well developed, obese female laying on stretcher in discomfort. HEAD: Asymmetrical Facies with left facial droop, atraumatic, no scalp lesions. EYES: No ptosis, pupils equal, round, reactive to light and accommodation, sclera non-icteric, extraocular movement intact, positive bilateral nystagmus EARS: normal external structures, no ear pain NOSE: sinuses non tender to percussion, no rhinorrhea ORAL CAVITY: Dysarthria, mucous membranes dry, upper denture in place with lower bridge, tongue in midline. THROAT: normal, no erythema, no exudate NECK/THYROID: Generalized tenderness to palpation, pain to palpation left trapezius, no jugular venous distention, positive right carotid bruit, no thyromegaly, trachea midline. LYMPH NODES: no cervical or supraclavicular lymphadenopathy. SKIN: warm and dry, no suspicious lesions, no rashes, good turgor. HEART: regular rate and rhythm, S1-S2 without murmur, no rubs or gallops, brisk capillary refill, no edema LUNGS: clear to auscultation bilaterally, no coarseness crackles or wheezing, no cough present CHEST: Symmetrical movement, no accessory muscle use, no pain to AP and lateral compression. ABDOMEN: Soft, round, dull to percussion, mild epigastric tenderness on palpation without guarding, no peritoneal signs, no organomegaly, no flank or suprapubic tenderness, active bowel tones. 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 NEUROLOGIC: AAO x4, NIH stroke scale is 5 with facial droop, dysarthria, ataxia of left upper extremity, diminished sensation left side, sensory extinction left side face arm and leg PSYCH: alert, cognitive function intact, good eye contact, appropriate with stable behavior Objective Labs Result Diagrams: 05/13/19 23:20 05/13/19 23:20 Labs: Laboratory Results - last 24 hr 05/13/19 05/13/19 05/13/19 23:20 23:20 23:20 WBC 10.2 RBC 4.86 Hgb 15.1 Hct 45.2 MCV 93.1 MCH 31.1 MCHC 33.4 RDW 13.5 Plt Count 277 Neut % (Auto) 67.9 Lymph % (Auto) 23.8 L Petroleum % (Auto) 5.7 Eos % (Auto) 2.0 Baso % (Auto) 0.6 Neut # (Auto) 7000 Lymph # (Auto) 2400 Petroleum # (Auto) 600 Eos # (Auto) 200 Baso # (Auto) 100 PT 11.2 INR 1.0 APTT 33 Sodium 138 Potassium 4.7 Chloride 101 Carbon Dioxide 31 BUN 26 H Creatinine 0.70 Estimated GFR > 60.0 BUN/Creatinine Ratio 37.1 H Glucose 183 H Calcium 9.1 Assessment & Plan Assessment & Plan narrative: This is a 69-year-old female patient who was admitted to the hospital with an acute right hemispheric CVA overlying prior right MCA cerebral aneurysm clipping. The patient with previous left side deficits with new onset dysarthria demanding sensory deficits and ataxia. 1. Acute right hemisphere CVA, present on admission -last known normal is over 24 hours ago and is not an interventional candidate. Increased density left-sided sensory deficits and motor ataxia. -patient is not a candidate for MRI related to presence of aneurysm clips. CT scan obtained finds no new intracranial lesions, hemorrhage, hydrocephalus or shift. -patient does have right carotid bruit on exam will obtain CT angiogram and carotid ultrasound. -obtain echocardiogram -patient will be NPO with speech to consult for swallow evaluation as well as PT and OT evaluate and treat. -check lipid profile and will start on atorvastatin 20 mg daily. -patient with muscle spasms since her previous stroke, will continue cyclobenzaprine when again taking p.o. 2. Chronic lumbar spine pain, active -patient currently complaints of significant back pain in the lumbar spine with recurrent radiculopathy. Patient states her provider has requested imaging of her back. -she has been taking naproxen 500 mg twice daily [place] 10/325 every 6 hours as needed and gabapentin 800 mg twice daily. -patient is currently NPO having failed bedside swallow eval and pending speech therapy evaluation -will treat pain with hydromorphone 0.5-1 mg IV as needed for pain. 3. Elevated blood pressure without diagnosis of hypertension, unknown if acute or chronic, present on admission -blood pressure on admission is 164/93 and upon arrival on the floor was over 200 but is likely somewhat situational and related to back pain with transferring patient. -labetalol 10 mg as needed for systolic blood pressure greater than 185 or diastolic pressure greater than 110. -will track blood pressures 4. Intermittent Vertigo, chronic, stable -she had undergone CT the head in March for evaluation of vertigo with stable findings from prior CVA. -patient reports no complaints of dizziness and is on no current medications for vertigo. 5. Dysthymia, chronic, stable -patient is alert and appropriate stable mood. Denies thoughts of suicide or self-harm. -continue venlafaxine 225 mg daily. The patient is admitted to the hospital as an inpatient for acute CVA requiring additional of evaluation and monitoring. Her expected length of stay is greater than 2 midnights. Time Spent With Patient Time with patient: 25 - 35 minutes Scores GCS Lucía coma scale eye opening: Spontaneous [place] coma scale verbal response: Orientated [place] coma scale motor response: Obey commands [place] coma scale total score: 15 NIHSS Level of Conciousness: Alert, keenly responsive Ask month/age: Answers both questions correctly. Open/close eyes, close hand: Performs both tasks correctly Best gaze horizontal: Normal Visual valenzuela: No visual loss Facial palsy: Minor paralysis, flattened nasolabial fold, asymmetry on smiling Left arm drift: No drift for full 10 sec Right arm drift: No drift for full 10 sec Left leg drift: No drift for full 5 sec Right leg drift: No drift for full 5 sec Limb ataxia: Present in one limb (Left upper extremity) Sensory on face/arms/legs: Mild to moderate sensory loss, can tell touch Best language: No aphasia, normal Dysarthria: Mild to mod,some slurring Extinction or inattention: Visual, tactile, auditory, spacial or personal inattention to stimuli Total NIH Stroke scale score: 5
--- NOTE | 2019-05-14 02:20 | P.HP_ITS ---
History of Present Illness Date Patient Seen: 05/14/19 Time Patient Seen: 01:00 Chief complaint: possible stroke - sent by [facility] Narrative: Ms Lesley Finney is a 69-year-old female with a history significant for cerebral aneurysm and craniotomy 2000 with residual left-sided deficits, corrie tigo, migraines, chronic lumbar spine pain with radiculopathy, uterine cancer and current smoker who presents to the ER with tonight with new onset of difficulty speaking ataxia and facial droop. Patient reports going to bed last night feeling well and woke this morning with difficulty talking and enunciating words as well as ataxia failure feet were coordinated. The patient states she did not realize she was having a stroke until her friend came over about 5:00 p.m. and noted her facial droop at which time [facility] was summoned. The patient reports no complaints of headaches, dizziness though she does have history of vertigo or visual changes. She has had no recent illness or fevers or chills. She denies chest pain or palpitations. She denies shortness of breath and endorses a smoker's cough. She denies complaints of nausea vomiting, abdominal pain or constipation. She reports no dysuria. She has residual left- sided sensory and motor deficits following a right posterior frontal lobe aneurysm repair and craniotomy in 2000 at [facility] in [facility]. Upon arrival in the ER the patient was afebrile with a temperature 97.7?, heart rate 99, hypertensive with a blood pressure 164/93, respirations 16 saturating 97% on room air. CT scan of the brain is obtained finding encephalomalacia right frontal temporal region that is unchanged aneurysm clips right MCA, no intracranial hemorrhage, hydrocephalus or shift. Lab work obtained finds white cell count of 10.2, hemoglobin of 15.1, hematocrit 45.2 and platelets of 277. Coagulation reveals PT of 11.2 INR 1.0 and PTT of 33. Electrolytes are within normal range over as a BUN of of 26 and creatinine is 0.7 with a BUN creatinine ratio of 37.1 and a nonfasting glucose of 183. In the ER the patient was rated at a 5 on the NIH stroke scale. The patient failed a bedside swallow evaluation obtained in the ER. Patient will be administered aspirin 325 mg per rectum. The patient is admitted for acute CVA. 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) Fractures (Resolved 2013) Measles (Resolved ~1954) Mumps (Resolved ~1954) PMB (postmenopausal bleeding) (Resolved ~2009) Rubella (Resolved ~1954) Surgical History History of colonoscopy with polypectomy (Resolved 2000) History of craniotomy (Resolved 04/18/01) History of phacoemulsification of cataract of left eye with intraocular lens implantation (Resolved 11/15/17) History of phacoemulsification of cataract of right eye with intraocular lens implantation (Resolved 11/01/17) History of total hysterectomy with bilateral salpingo-oophorectomy (BSO) (Resolved 09/28/17) S/P total hysterectomy and bilateral salpingo-oophorectomy (Resolved ~09/28/17) Social History household members: friend(s) Smoking Status: Current every day smoker Family & Social History Family History (Updated 05/14/19 @ 02:28 by ARELI Rod) Father Lung disease Mother Colon cancer Sister Diabetes mellitus Uterine cancer Son No problems noted. Safety & Behavioral: Feels Safe in Current Yes Environment Tobacco & Substance use: Smoking Status Current every day smoker alcohol intake frequency holiday/special occasion Substance Use Type does not use Comment: The patient lives in a single family home non [facility] with her roommate Genet Lofton. She was previously and has been for 50 years. Her parents are both her father from complications of lung disease and her mother from colon cancer who had hemicolectomy. She has 1 sister with type 2 diabetes and uterine cancer. She had 1 son who from suicide. 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 Smoking: The patient continues to smoke 1 pack per day is done so on and off accumulating 40 pack year smoking history. Alcohol: Patient endorses consuming wine approximately 3 times per week. Substance use: Patient reports using a product she obtains from the marijuana shop but cannot name the substance. Advanced directives: In direct conversation with the patient she wishes to be a FULL CODE but indicates she does not want long-term life support. She designates her roommate Genet Lofton to be her surrogate decision maker. Meds Home Medications Medication Instructions Recorded Confirmed Type cyclobenzaprine 1 tab PO BID PRN #60 tab 10/19/16 Rx hydrocodone-acetaminophen 1 tab PO Q6HP PRN #270 tab 10/19/16 Rx naproxen 1 tab PO BIDCC #60 tab 10/19/16 Rx venlafaxine 225 mg PO QDAY #270 tab 10/19/16 Rx hydrocodone-acetaminophen 1 tab PO Q6HP PRN #270 tab 04/08/17 Rx gabapentin [Neurontin] 400 cap PO SEE INSTRUCTIONS #150 04/18/17 Rx cap tolterodine ER 4 mg 4 mg PO DAILY #30 cap 03/30/18 Rx capsule,extended release 24 hr Allergies Allergy/AdvReac Type Severity Reaction Status Date / Time phenytoin [From DILANTIN] Allergy Mild hives Verified 05/13/19 23:22 TB skin test Allergy Mild skin Uncoded 01/04/18 12:26 reaction Review of Systems Review of Systems All systems reviewed & are unremarkable except as noted in HPI and below Exam Vital Signs (past 8 hours): - 05/13/19 23:18 05/14/19 00:15 05/14/19 01:17 Temperature 97.7 F Pulse Rate 99 H 72 82 Respiratory Rate 16 11 L 19 Blood Pressure 164/93 H Blood Pressure [Left Arm] 172/75 H 159/65 H Pulse Oximetry 97 96 99 05/14/19 01:21 05/14/19 01:45 Temperature 97.9 F Pulse Rate 82 85 Respiratory Rate 16 21 Blood Pressure 159/65 H Blood Pressure [Left Arm] Pulse Oximetry 98 98 Oxygen Delivery Method Room Air Oxygen Flow Rate 0 Narrative Exam Narrative: GENERAL APPEARANCE: well developed, obese female laying on stretcher in discomfort. HEAD: Asymmetrical Facies with left facial droop, atraumatic, no scalp lesions. EYES: No ptosis, pupils equal, round, reactive to light and accommodation, sclera non-icteric, extraocular movement intact, positive bilateral nystagmus EARS: normal external structures, no ear pain NOSE: sinuses non tender to percussion, no rhinorrhea ORAL CAVITY: Dysarthria, mucous membranes dry, upper denture in place with lo wer bridge, tongue in midline. THROAT: normal, no erythema, no exudate NECK/THYROID: Generalized tenderness to palpation, pain to palpation left trapezius, no jugular venous distention, positive right carotid bruit, no thyromegaly, trachea midline. LYMPH NODES: no cervical or supraclavicular lymphadenopathy. SKIN: warm and dry, no suspicious lesions, no rashes, good turgor. HEART: regular rate and rhythm, S1-S2 without murmur, no rubs or gallops, brisk capillary refill, no edema LUNGS: clear to auscultation bilaterally, no coarseness crackles or wheezing, no cough present CHEST: Symmetrical movement, no accessory muscle use, no pain to AP and lateral compression. ABDOMEN: Soft, round, dull to percussion, mild epigastric tenderness on palpation without guarding, no peritoneal signs, no organomegaly, no flank or suprapubic tenderness, active bowel tones. 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 NEUROLOGIC: AAO x4, NIH stroke scale is 5 with facial droop, dysarthria, ataxia of left upper extremity, diminished sensation left side, sensory extinction left side face arm and leg PSYCH: alert, cognitive function intact, good eye contact, appropriate with stable behavior Objective Labs Result Diagrams: 05/13/19 23:20 05/13/19 23:20 Labs: Laboratory Results - last 24 hr 05/13/19 05/13/19 05/13/19 23:20 23:20 23:20 WBC 10.2 RBC 4.86 Hgb 15.1 Hct 45.2 MCV 93.1 MCH 31.1 MCHC 33.4 RDW 13.5 Plt Count 277 Neut % (Auto) 67.9 Lymph % (Auto) 23.8 L [place] % (Auto) 5.7 Eos % (Auto) 2.0 Baso % (Auto) 0.6 Neut # (Auto) 7000 Lymph # (Auto) 2400 [place] # (Auto) 600 Eos # (Auto) 200 Baso # (Auto) 100 PT 11.2 INR 1.0 APTT 33 Sodium 138 Potassium 4.7 Chloride 101 Carbon Dioxide 31 BUN 26 H Creatinine 0.70 Estimated GFR > 60.0 BUN/Creatinine Ratio 37.1 H Glucose 183 H Calcium 9.1 Assessment & Plan Assessment & Plan narrative: This is a 69-year-old female patient who was admitted to the hospital with an acute right hemispheric CVA overlying prior right MCA cerebral aneurysm clipping. The patient with previous left side deficits with new onset dysarthria demanding sensory deficits and ataxia. 1. Acute right hemisphere CVA, present on admission -last known normal is over 24 hours ago and is not an interventional candidate. Increased density left-sided sensory deficits and motor ataxia. -patient is not a candidate for MRI related to presence of aneurysm clips. CT scan obtained finds no new intracranial lesions, hemorrhage, hydrocephalus or shift. -patient does have right carotid bruit on exam will obtain CT angiogram and carotid ultrasound. -obtain echocardiogram -patient will be NPO with speech to consult for swallow evaluation as well as PT and OT evaluate and treat. -check lipid profile and will start on atorvastatin 20 mg daily. -patient with muscle spasms since her previous stroke, will continue cyclobenzaprine when again taking p.o. 2. Chronic lumbar spine pain, active -patient currently complaints of significant back pain in the lumbar spine with recurrent radiculopathy. Patient states her provider has requested imaging of her back. -she has been taking naproxen 500 mg twice daily [place] 10/325 every 6 hours as needed and gabapentin 800 mg twice daily. -patient is currently NPO having failed bedside swallow eval and pending speech therapy evaluation -will treat pain with hydromorphone 0.5-1 mg IV as needed for pain. 3. Elevated blood pressure without diagnosis of hypertension, unknown if acute or chronic, present on admission -blood pressure on admission is 164/93 and upon arrival on the floor was over 200 but is likely somewhat situational and related to back pain with transferring patient. -labetalol 10 mg as needed for systolic blood pressure greater than 185 or diastolic pressure greater than 110. -will track blood pressures 4. Intermittent Vertigo, chronic, stable -she had undergone CT the head in March for evaluation of vertigo with stable findings from prior CVA. -patient reports no complaints of dizziness and is on no current medications for vertigo. 5. Dysthymia, chronic, stable -patient is alert and appropriate stable mood. Denies thoughts of suicide or self-harm. -continue venlafaxine 225 mg daily. The patient is admitted to the hospital as an inpatient for acute CVA requiring additional of evaluation and monitoring. Her expected length of stay is greater than 2 midnights. Time Spent With Patient Time with patient: 25 - 35 minutes Scores GCS Lucía coma scale eye opening: Spontaneous Lucía coma scale verbal response: Orientated [place] coma scale motor response: Obey commands [place] coma scale total score: 15 NIHSS Level of Conciousness: Alert, keenly responsive Ask month/age: Answers both questions correctly. Open/close eyes, close hand: Performs both tasks correctly Best gaze horizontal: Normal Visual valenzuela: No visual loss Facial palsy: Minor paralysis, flattened nasolabial fold, asymmetry on smiling Left arm drift: No drift for full 10 sec Right arm drift: No drift for full 10 sec Left leg drift: No drift for full 5 sec Right leg drift: No drift for full 5 sec Limb ataxia: Present in one limb (Left upper extremity) Sensory on face/arms/legs: Mild to moderate sensory loss, can tell touch Best language: No aphasia, normal Dysarthria: Mild to mod,some slurring Extinction or inattention: Visual, tactile, auditory, spacial or personal inattention to stimuli Total NIH Stroke scale score: 5
[2019-05-14] MEDS: HYDROMORPHONE 1 MG INJ IV ×2 (02:38→09:19)
[2019-05-14 06:13] LABS: HEMOLYSIS < 15 (0-50); Potassium 4.4 mmol/L (3.4-5.1)
[2019-05-14 06:15] LABS: Alanine Aminotransferase 33 IU/L (9-52); Albumin 3.6 g/dL (3.5-5.0); Albumin Globulin Ratio 1.2 (1.0-2.8); Alkaline Phosphatase 80 U/L (38-126); Aspartate Aminotransferase 29 IU/L (14-36); BUN Creatinine Ratio 33.3 (6-22); Bilirubin Total 0.7 mg/dL (0.2-1.3); Blood Urea Nitrogen 20 mg/dL (7-17); Calcium 8.5 mg/dL (8.4-10.2); Carbon Dioxide 29 mmol/L (22-32); Chloride 104 mmol/L (98-107); Cholesterol 213 mg/dL (140-199); Estimated Glomerular Filt Rate > 60.0 mL/min (>60); Globulin 2.9 g/dL (1.7-4.1); Glucose 136 mg/dL (80-110); HDL Cholesterol 30 mg/dL (40-60); Hemoglobin A1C% w Est Avg Glu 7.5 % (4.0-6.0); LDL Cholesterol Calculated 130 mg/dL (<100); Sodium 139 mmol/L (137-145); Total Protein 6.5 g/dL (6.3-8.2); Triglycerides 266 mg/dL (35-150)
--- NOTE | 2019-05-14 08:36 | DI.CT.S_ITS ---
PROCEDURE: CT ANGIO HEAD INDICATIONS: Acute CVA, s/p cerebral aneurysm with clips 2000 TECHNIQUE: Precontrast 4.5 mm thick angled axial sections acquired from the foramen magnum to the vertex. After the administration of intravenous contrast, 1 mm thick sections acquired through the [place]. Postcontrast 4.5 mm thick sections then re-acquired from the foramen magnum to the vertex. 10 mm thick nhiihue-mzvwvbsvc-fvbbbtdamm (MIP) reformats were acquired of the central intracranial vasculature. For radiation dose reduction, the following was used: automated exposure control, adjustment of mA and/or kV according to patient size. COMPARISON: [facility], CT, CT HEAD/BRAIN WO CON, 05/13/2019, 23:25. [facility], CT, CT HEAD/BRAIN WO/W CON, 04/02/2019, 12:11. [facility], US, US CAROTID DOPPLER BI, 05/14/2019, 7:56. FINDINGS: Image quality: Diagnostic. There is streak artifact associated with the MCA clips. Anterior circulation: There is reduced flow seen within the right internal carotid artery compared to the left. The flow within the paired anterior cerebral arteries is normal and symmetric. On the metal suppression images (series 15) it can be seen at the flow within the distal right MCA is reduced compared to the left. The flow within the right MCA territory is decreased compared to the left. The anterior communicating artery is not well seen. No aneurysms are seen. Posterior circulation: Visualized portions of the vertebral arteries demonstrate normal caliber, and join to form a normal appearing basilar artery. There is a prominent left posterior communicating artery seen, with an accompanying diminutive left P1 segment. This is attributed to a type origin of the left posterior cerebral artery, which is considered to be a normal developmental variant of typically no clinical consequence. Flow within the posterior cerebral arteries is normal and symmetric. No aneurysms are seen. CSF spaces: Ex vacuo dilatation is seen involving the right lateral ventricle. Basal cisterns are patent. No extra-axial fluid collections. Brain: There is stable volume loss and encephalomalacia involving the right temporal lobe and the right posterior frontal lobe and parietal lobe. Right MCA clips are seen, with associated streak artifact. No midline shift. No intracranial bleeds or masses. Johnson-white matter interface appears intact. Skull and face: Right craniotomy changes are seen. Calvarium and facial bones appear intact, without suspicious lesions. Sinuses: Visualized sinuses and mastoids are clear. IMPRESSION: Reduced flow within the right internal carotid artery compared to the left. Decreased flow within the right distal MCA and within the right MCA territory compared to the left. It is uncertain whether this is an acute process or simply related to the patient's prior stroke. Remote right MCA stroke. Right MCA aneurysm clipping, associated craniotomy changes. Dictated by: Adin Killian M.D. on 05/14/2019 at 8:11 Approved by: Adin Killian M.D. on 05/14/2019 at 8:18
--- NOTE | 2019-05-14 10:18 | ST.IPCSEOM ---
Current Diagnoses Cerebral infarction, unspecified (05/14/19) Past Medical History (Last Reviewed 05/14/19 @ 02:26 by ARELI Rod) Chronic back pain (Chronic Medical 1966) Depression (Chronic Medical 2002) Foot pain (Chronic Medical 2013) Left foot x3 Hayfever (Chronic Medical 1974) History of stroke with current residual effects (Chronic Medical 04/18/01) Due to cerebral aneurysm which required craniotomy and clips - resulted in left-sided deficit Lichen sclerosus et atrophicus of the vulva (Chronic Medical) Lumbar spine pain (Chronic Medical) Migraines (Chronic Medical ~1989) Osteoporosis (Chronic Medical) Peripheral neuropathy (Chronic Medical) Radiculopathy (Chronic Medical) Urinary incontinence (Chronic Medical 2000) Vertigo, central (Chronic Medical 2000) Cataracts, bilateral (Resolved Medical) Cerebral aneurysm (Resolved Medical 04/18/01) Required craniotomy and clips, resulted in left-sided deficit Chicken pox (Resolved Medical ~1954) Colon polyps (Resolved Medical 2000) 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) S/P RACHNA-BSO; stage IA, grade 1 endometrioid endometrial adenocarcinoma, negative SLN, negative LVSI; no chemo/radiation needed Fractures (Resolved Medical 2013) Measles (Resolved Medical ~1954) Mumps (Resolved Medical ~1954) PMB (postmenopausal bleeding) (Resolved Medical ~2009) Rubella (Resolved Medical ~1954) 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 Clinical Swallow Evaluation Start: 05/14/19 10:01 Freq: Status: Active Protocol: Document 05/14/19 10:01 TLC (Rec: 05/14/19 10:15 [facility] [id number]) Clinical Swallow Evaluation Session Time Visit Start Time 09:20 Visit Stop Time 09:55 Total Visit Minutes 35 Referral Reason for Referral coughed on water during nursing swallow screen Setting Assessment Location Acute Care Visit Type Note Type Initial Evaluation Next Note Type Next Note Type Treatment Note Patient Information Identification Type Name History Patient admitted for new onset of difficulty speaking ataxia and facial droop last night. She has a history significant for cerebral aneurysm and craniotomy 2000 with residual left-sided deficits, vertigo, migraines, chronic lumbar spine pain with radiculopathy, uterine cancer and current smoker. Patient lives at home on [facility] with her roommate/caregiver who cooks and cleans for her. Lesley manages her own medication and uses auto bill pay. She drives short distances around [facility]. Subjective Observations Lesley is alert and oriented to time, date, place and situation. She was cooperative and pleasant during the evaluation. Due to back pain, she was unable to tolerate sitting 90 degrees upright. The HOB was raised as much as able and pillows were used to assist posture. Evaluation Liquids Trialed Ice Chips Thin Solids Trialed Puree Mechanical Soft Regular Administration Type Dependent Feeding Oral Impairment WFL Oral Phase Comments Oral cavity was moist and clear of residue/debris. Upper and lower dentures were present and well-fitting. Observed left facial droop at rest. Lingual, labial and buccal strength, and range of motion are WFL. Mild dysarthria characterized by imprecise articulation though speech is 100% intelligible. Diadochokineses rates were WFL . Lesley self-fed a variety of solid and liquid consistencies without difficulty. No oral residue observed. Pharyngeal Phase Comments Mild throat clear observed with one sip of water and one bite of applesauce; however, no overt signs of aspiration were observed during PO trials . Findings Impressions No signs of oral or pharyngeal dysphagia. Mild dysarthria affecting articulatory precision. Patient scored 27/ 30 on the SLUMS indicating normal cognition. She lost one point for backward digit span and two points for delayed recall. Diet Recommendations Liquids Order Thin Diet Order Regular Medication Recommendations As Tolerated Treatment Plan Placement Recommendations after Home Discharge Appropriate for Therapy Yes Therapy Recommendations Follow-up x1 to assess swallow safety and endurance during meals as well as ongoing education regarding dysarthria as needed.
[2019-05-14] MEDS: SODIUM CHLORIDE 0.9% 1,000 ML 125 ML IV (10:35)
--- NOTE | 2019-05-14 10:52 | OT.IP.TRT ---
Current Diagnoses Cerebral infarction, unspecified (05/14/19) Occupational Therapy Treatment Note M3 OT- IP Subjective and Pain Start: 05/14/19 10:48 Freq: Status: Active Protocol: Document 05/14/19 10:49 CGR (Rec: 05/14/19 10:52 CGR [id number]) OT- Subjective Occupational Therapy Visit Type Type Administrative Note Notes Attempted to see pt for OT services after getting the Ok from Dr. Gandara to see and for OOB activity. Pt getting ultrasound and then going for CAT scan. Will hold at this time. Per Dr. Gandara, depending on results of testing, pt may transfer to another hospital.
--- NOTE | 2019-05-14 10:54 | DI.CT.S_ITS ---
PROCEDURE: CT ANGIO NECK INDICATIONS: assess carotid arteries, CVA TECHNIQUE: After the administration of intravenous contrast, 1.5 mm axial sections acquired from the aortic arch to the [place]. Maximum intensity projection (MIP) reformats were then performed. COMPARISON: None. FINDINGS: Image quality: Excellent. Carotid system: Incidental note is made of a common origin of the right brachiocephalic artery and the left common carotid artery (bovine type arch). This is considered to be a developmental variant of no clinical consequence. The origins of the common carotid arteries appear patent. The common carotid arteries demonstrate normal calibers and courses. The bifurcation regions demonstrate atherosclerotic irregularity. There is near-complete narrowing seen of the right proximal internal carotid artery. The left proximal internal carotid artery demonstrates no significant narrowing. The left proximal internal carotid artery is tortuous. Posterior circulation: The origins of the vertebral arteries appear patent. Tortuosity can be seen involving the the proximal vertebral arteries. The more superior portions of the vertebral arteries demonstrate normal course and caliber. They join to form a normal appearing basilar artery. Soft tissues: Visualized neck soft tissues demonstrate no suspicious abnormalities. Thyroid gland demonstrates no significant CT abnormality. Bones: No suspicious bony lesions. Visualized cervical spine appears normally aligned. Age-appropriate bony degenerative changes are seen. IMPRESSION: There is a subtotal stenosis seen involving right proximal internal carotid artery. Tortuous left internal carotid artery and tortuous vertebral arteries incidentally noted. Any quantitative stenosis measurements were performed using the NASCET criteria. Dictated by: Adin Killian M.D. on 05/14/2019 at 11:25 Approved by: Adin Killian M.D. on 05/14/2019 at 11:30
--- NOTE | 2019-05-14 10:59 | PT.IPTN ---
Current Diagnoses Cerebral infarction, unspecified (05/14/19) Physical Therapy Treatment Note M3 PT-IP Subjective Start: 05/14/19 10:40 Freq: NEEDED Status: Active Protocol: Document 05/14/19 10:58 RS (Rec: 05/14/19 10:59 RS [id number]) Subjective Physical Therapy Visit Type Type Administrative Note Notes Pt getting series of imaging performed, not currently available, will check back in afternoon. Pt MAY be transferring to outside hospital.
--- NOTE | 2019-05-14 13:32 | DIET.PN ---
Dietary Progress Note Assessment: 69y F admitted for possible stroke, referred to nutrition re: BMI of 35.4 Pt reports strong family history of DM2, pt has not been diagnosed with DM2 though A1c is well into dx range. Usual intake: B: banana, congregational Oats chocolate granola bar L: either [place] chocolate protein drink or lunch at [facility] 3x/w D: roomate makes dinner, likes seafood, sweet potatoes, fruit Likes chocolate ice cream, asked how she can still eat it. Requesting DM2 diet planning papers. HT: 160cm WT: 90.7kg BMI: 35.4 Labs: BG 136-183 (H), A1c 7.5 (H) Monitoring/Evaluations: Recc referral for outpatient DM counseling, CDE will visit pt tomorrow to educate on meal planning.
--- NOTE | 2019-05-14 13:35 | PT.IIE ---
Current Diagnoses Cerebral infarction, unspecified (05/14/19) Surgical History (Last Reviewed 05/14/19 @ 02:26 by ARELI Rod) History of colonoscopy with polypectomy (Resolved 2000) History of craniotomy (Resolved 04/18/01) History of phacoemulsification of cataract of left eye with intraocular lens implantation (Resolved 11/15/17) History of phacoemulsification of cataract of right eye with intraocular lens implantation (Resolved 11/01/17) History of total hysterectomy with bilateral salpingo-oophorectomy (BSO) (Resolved 09/28/17) S/P total hysterectomy and bilateral salpingo-oophorectomy (Resolved ~09/28/17) Medical History (Last Reviewed 05/14/19 @ 02:26 by ARELI Rod) Chronic back pain (Chronic 1966) Depression (Chronic 2002) Foot pain (Chronic 2013) Hayfever (Chronic 1974) History of stroke with current residual effects (Chronic 04/18/01) Lichen sclerosus et atrophicus of the vulva (Chronic) Lumbar spine pain (Chronic) Migraines (Chronic ~1989) Osteoporosis (Chronic) Peripheral neuropathy (Chronic) Radiculopathy (Chronic) Urinary incontinence (Chronic 2000) Vertigo, central (Chronic 2000) Cataracts, bilateral (Resolved) Cerebral aneurysm (Resolved 04/18/01) Chicken pox (Resolved ~1954) Colon polyps (Resolved 2000) 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) Fractures (Resolved 2013) Measles (Resolved ~1954) Mumps (Resolved ~1954) PMB (postmenopausal bleeding) (Resolved ~2009) Rubella (Resolved ~1954) Physical Therapy Inpatient Evaluation/Re-Eval M1 PT/OT-IP Prior Functional Status Start: 05/14/19 10:48 Freq: NEEDED Status: Active Protocol: Document 05/14/19 13:35 RS (Rec: 05/14/19 15:50 RS [id number]) Medical Review Prior Functional Status Medical History Reviewed Yes Diet/Fluid Consistency Regular Communication no known deficits Mobility and Gait ind in home, uses 4ww for longer distances Activities of Daily Living and IADL's denies needing assist with any self-care Prior Functional Level (Other details) drives short distances, roommate drives [place] Social History Household Members friend(s) Living Arrangements House Number of Floors (Floors) One Floor Number of Stairs To Enter/Railing? ramped entry, 2STE if coming in through back deck. Home Equipment Four Wheel Walker Quad Cane Straight Cane Employment Status Retired M2 PT-IP Current Condition Start: 05/14/19 10:40 Freq: NEEDED Status: Active Protocol: Document 05/14/19 13:35 RS (Rec: 05/14/19 15:50 RS [id number]) Physical Therapy Current Condition Current Condition Evaluation Date 05/14/19 Treatment Diagnosis impaired mobility Onset Date 05/13/19 M3 PT-IP Subjective Start: 05/14/19 10:40 Freq: NEEDED Status: Active Protocol: Document 05/14/19 13:35 RS (Rec: 05/14/19 15:50 RS [id number]) Subjective Physical Therapy Visit Type Type Initial Evaluation Visit Start Time 13:00 Visit Stop Time 13:35 Total Visit Minutes 35 Physical Therapy Visit Comments Patient Comments Pt reports being restless, is bored, feels fine and wants to go home. Patient Goals see above Therapy Pain Assessment Pain When Pain Assessed At Rest Pain Present Pain Present Denied Pain M4 PT-IP Mobility and Gait Start: 05/14/19 10:40 Freq: NEEDED Status: Active Protocol: Document 05/14/19 13:35 RS (Rec: 05/14/19 15:50 RS [id number]) PT-Bed Mobility Assessment Supine to Sit Supine to Sit Independent Sit to Supine Sit to Supine Independent Scooting Scooting to Edge of Bed Independent PT-Transfer Assessment Sit to and From Stand Sit to and from Stand Standby Assistance Equipment Transfer Assistive Device 4 Wheeled Walker Transfers Transfer Destination Bed Transfer Technique walked Transfer Ability Level of Assist Standby Assistance Comments Mobility Comments pt is slightly impulsive, not following instructions to have someone with her when she's up. Pt initially found walking in room without walker or staff. Gait Assessment Gait Gait Assistance Required: Standby Assistance Distance (Feet) 300 Assistive Devices Assistive Device 4 Wheeled Walker Comments Gait Comments Overall pt is steady and stable, did have 2 slight LOBs , mostly when navigating in cramped environment. Pt was able to self-correct. Stair Climbing Assessment Comments Stair Climbing Comments not tested PT-Balance Assessment Sitting Balance and Reactions Static Sitting Balance Ability Normal Dynamic Sitting Balance Ability Good Standing Balance and Reactions Static Standing Balance Ability Good Dynamic Standing Balance Ability Good Device Used 4WW M5 PT-IP Objective Assessments Start: 05/14/19 10:40 Freq: NEEDED Status: Active Protocol: Document 05/14/19 13:35 RS (Rec: 05/14/19 15:50 RS [id number]) Orientation Orientation/Cognition Level of Alertness Alert Orientation Name Age Birthday Month Date Year Day of Week Place Situation Language Function Ability No Deficits Noted Safety Awareness Understands Safety Issues Memory Description No Deficits Noted Gross Range of Motion Upper Extremity ROM Assessment Within Functional Limits Lower Extremity ROM Assessment Within Functional Limits Strength Upper Extremity Strength Assessment Left Impaired Lower Extremity Strength Assessment Left Impaired M6 PT-IP Treatment Start: 05/14/19 10:40 Freq: NEEDED Status: Active Protocol: Document 05/14/19 13:35 RS (Rec: 05/14/19 15:50 RS [id number]) Physical Therapy Treatment Education Education Provided Safety M7 PT-IP Assessment and Plan Start: 05/14/19 10:40 Freq: NEEDED Status: Active Protocol: Document 05/14/19 13:35 RS (Rec: 05/14/19 15:50 RS [id number]) PT Summary Assessment and Plan Potential Rehabilitation Potential Good Status of Condition at Evaluation Evolving Summary Assessment Summary Pt presents with acute on chronic L weakness (pt had previous R CVA several years ago), but pt is only slightly weaker compared to most recent baseline. Pt does have L facial droop. Pt's gait is steady overall when using 4WW, not nearly as safe without an AD. At this point pt is transferring later today to [facility] for surgical intervention. Recommend f/u with PT/OT once pt has surgery at that hospital. Acute PT will sign off. Frequency of Treatment Frequency Of Treatment Discharge Recommendations To Nursing Amount of Assist Needed Standby Assistance 1 Person Assist
[2019-05-14] MEDS: VENLAFAXINE ER 75 MG CAP 225 MG PO (15:05)
--- NOTE | 2019-05-14 15:10 | P.DS_ITS ---
History of Present Illness Date Patient Seen: 05/14/19 Chief complaint: possible stroke - sent by [facility] Narrative: Written by Champ SINGLETON: Ms Lesley Finney is a 69-year-old female with a history significant for cerebral aneurysm and craniotomy 2000 with residual left-sided deficits, vertigo, migraines, chronic lumbar spine pain with radiculopathy, uterine cancer and current smoker who presents to the ER with tonight with new onset of difficulty speaking ataxia and facial droop. Patient reports going to bed last night feeling well and woke this morning with difficulty talking and enunciating words as well as ataxia failure feet were coordinated. The patient states she did not realize she was having a stroke until her friend came over about 5:00 p.m. and noted her facial droop at which time [facility] was summoned. The patient reports no complaints of headaches, dizziness though she does have history of vertigo or visual changes. She has had no recent illness or fevers or chills. She denies chest pain or palpitations. She denies shortness of breath and endorses a smoker's cough. She denies complaints of nausea vomiting, abdominal pain or constipation. She reports no dysuria. She has residual left-sided sensory and motor deficits following a right posterior frontal lobe aneurysm repair and craniotomy in 2000 at [facility] in [facility]. Upon arrival in the ER the patient was afebrile with a temperature 97.7?, heart rate 99, hypertensive with a blood pressure 164/93, respirations 16 saturating 97% on room air. CT scan of the brain is obtained finding encephalomalacia right frontal temporal region that is unchanged aneurysm clips right MCA, no intracranial hemorrhage, hydrocephalus or shift. Lab work obtained finds white cell count of 10.2, hemoglobin of 15.1, hematocrit 45.2 and platelets of 277. Coagulation reveals PT of 11.2 INR 1.0 and PTT of 33. Electrolytes are within normal range over as a BUN of of 26 and creatinine is 0.7 with a BUN creatinine ratio of 37.1 and a nonfasting glucose of 183. In the ER the patient was rated at a 5 on the NIH stroke scale. The patient failed a bedside swallow evaluation obtained in the ER. Patient will be administered aspirin 325 mg per rectum. The patient is admitted for acute CVA. Discharge Providers Date of admission: 05/14/19 00:49 Discharge Date: 05/14/19 Primary care physician: Myron Lacy MD Consults: 05/14/19 01:44 Consult to Discharge Planning Routine Comment: Consult to Speech Therapy Evaluate & Treat Comment: Acute CVA, failed bedside swallow evaluation Physician Instructions: Evaluate and treat 05/14/19 01:50 Consult to Physical Therapy Evaluate & Treat Comment: Acute R stoke, prior R Cerebral aneurysm, Lt negrito Physician Instructions: Evaluate and Treat 05/14/19 01:51 Consult to Occupational Therapy Evaluate & Treat Comment: Acute R stoke, prior R Cerebral aneurysm, Lt negrito Physician Instructions: Evaluate and treat 05/14/19 01:52 Consult to Dietitian, Adult Routine Comment: Reason For Exam: Stroke, Obesity, BMI 35.4 Consult to Discharge Planning Routine Comment: Discharge provider: Xiao Gandara DO Summary Discharge Diagnosis: 1. Acute right CVA with subtotal stenosis of right ICA, present on admission. Active. 2. Newly diagnosed diabetes mellitus type 2, non-insulin using, present on admission. Stable. 3. Elevated blood pressure without diagnosis of hypertension, acuity unclear, present on admission. Stable. 4. Chronic lumbar back pain, present on admission. Stable. 5. Intermittent vertigo, chronic, present on admission. Stable. 6. Dysthymia, chronic, present on admission. Stable. 7. Tobacco dependence, chronic, present on admission. Stable. Hospital Course: Lesley Finney is a 69-year-old female with a past medical history significant for cerebral aneurysm status post clipping, procedural complication with right MCA, and craniotomy in 2000 with residual left-sided paresthesias, weakness, vertigo, and migraines; chronic lumbar back pain with radiculopathy, uterine cancer status post hysterectomy and current tobacco smoker who presented to the ED with new onset of difficulty speaking, ataxia and left-sided facial droop. 1. Acute right CVA with subtotal stenosis of right ICA, present on admission. Active. -Last known normal is over 24 hours ago therefore patient was not an interv entional candidate. Patient presented with increased intensity of left-sided sensory deficits and new left-sided facial droop, dysarthria, and ataxia. -Patient is not a candidate for MRI related to presence of aneurysm clips. -CT brain without contrast did not demonstrate any new intracranial lesions, hemorrhage, hydrocephalus or shift. -CTA head demonstrated: Reduced flow within the right internal carotid artery compared to the left, decreased flow within the right distal MCA and within the right MCA territory compared to the left. It is uncertain whether this is an acute process or simply related to the patient's prior stroke. Remote right MCA stroke. Right MCA aneurysm clipping, associated craniotomy changes. -CTA neck demonstrated subtotal stenosis involving right proximal internal carotid artery and tortuous left internal carotid artery and tortuous vertebral arteries incidentally noted. -Echocardiogram demonstrated normal left ventricular thickness, size, wall motion, and systolic function (EF 60-65%), normal right ventricular size and function, no significant valvular abnormalities, injection of contrast documented no interatrial shunt. -Continued physical, occupational, and speech therapies evaluation and treatment. Cleared by speech for PO intake. -Risk stratified: Hemoglobin A1c of 7.5% which was indicative of diabetes mellitus type II and a fasting lipid panel which demonstrated poor lipid control: Total cholesterol 213, triglycerides 266, LDL 130, HDL 30. -Started and continued aspirin 81 mg daily and atorvastatin 40 mg daily at bedtime. 2. Newly diagnosed diabetes mellitus type II, non-insulin using, present on admission. Stable. -Hemoglobin A1c 7.5%. -Patient has not been on any oral antihyperglycemics and recommending initiation prior to discharge. -Continued to monitor blood glucose closely. -Patient will need diabetic education provided. 3. Elevated blood pressure without diagnosis of hypertension, acuity unclear, present on admission. Stable. -Blood pressure on admission was 164/93 and likely physiological to promote intracerebral blood flow. -Continued to allow for permissive hypertension for the next 24 hours. Ordered labetalol 10 mg IV as needed for SBP> 220 mmHg or DBP > 110 mmHg. 4. Chronic lumbar back pain, present on admission. Stable. -Patient currently complaints of significant back pain in the lumbar spine with recurrent radiculopathy. Patient states her provider has requested imaging of her back. -She has been taking naproxen 500 mg twice daily, hydrocodone 10-325 mg every 6 hours as needed for moderate to severe pain and gabapentin 800 mg twice daily. Continued medications once cleared by speech therapy for PO intake. 5. Intermittent vertigo, chronic, present on admission. Stable. -She had undergone CT brain in March for evaluation of vertigo with stable findings from prior CVA which are concurrent to our CT performed this admission. -Patient reports no complaints of dizziness and is on no current medications for vertigo. 6. Dysthymia, chronic, present on admission. Stable. -Patient is alert and appropriate stable mood. Denies thoughts of suicide or self-harm. -Continued venlafaxine 225 mg daily. 7. Tobacco dependence, chronic, present on admission. Stable. -Discussed smoking cessation in detail and highly recommend the patient to abstain from smoking indefinitely. The patient is open to quitting or cutting back substantially. Exam Vital Signs (past 8 hours): - 05/14/19 08:55 05/14/19 10:28 05/14/19 14:10 Pulse Rate 82 Blood Pressure 181/76 H Pulse Oximetry 95 95 Oxygen Delivery Method Room Air Oxygen Flow Rate 0 Narrative Exam Narrative: General: No acute distress, well-developed, well-nourished, appropriately interactive HEENT: Normocephalic, atraumatic. External ears without defect. Pupils equal, round, and reactive to light and accommodation. Anicteric sclerae, moist conjunctivae, and no lid lag. Oropharynx free of erythema and cobble stoning with moist mucosa. Neck: Supple with full range of motion. No jugular venous distension. No bruits. No lymphadenopathy or thyromegaly. Cardiovascular: Regular rate and rhythm without murmurs, rubs, or gallops appreciated Pulmonary: Clear to auscultation bilaterally without crackles, wheezes, or rhonchi. Normal respiratory effort with no use of accessory muscles. Abdomen: Soft, bowel sounds present, nontender, nondistended. No hepatosplenomegaly or masses appreciated. Extremities: No clubbing, cyanosis, or edema. Skin: Normal temperature, turgor, and texture; no rash, ulcers, or subcutaneous nodules appreciated. Neurological: Chronic left-sided weakness and paresthesia. New left-sided facial droop. New paresthesia of left upper thigh. Ataxia. Psychiatric: Normal mood and flat affect. Alert and oriented to person, place, and time. Objective Labs Result Diagrams: 05/13/19 23:20 05/14/19 05:45 Labs: Laboratory Results - last 24 hr 05/13/19 05/13/19 05/13/19 23:20 23:20 23:20 WBC 10.2 RBC 4.86 Hgb 15.1 Hct 45.2 MCV 93.1 MCH 31.1 MCHC 33.4 RDW 13.5 Plt Count 277 Neut % (Auto) 67.9 Lymph % (Auto) 23.8 L Beauregard % (Auto) 5.7 Eos % (Auto) 2.0 Baso % (Auto) 0.6 Neut # (Auto) 7000 Lymph # (Auto) 2400 Beauregard # (Auto) 600 Eos # (Auto) 200 Baso # (Auto) 100 PT 11.2 INR 1.0 APTT 33 Sodium 138 Potassium 4.7 Chloride 101 Carbon Dioxide 31 BUN 26 H Creatinine 0.70 Estimated GFR > 60.0 BUN/Creatinine Ratio 37.1 H Glucose 183 H Hemoglobin A1c Calcium 9.1 Total Bilirubin AST ALT Alkaline Phosphatase Total Protein Albumin Globulin Albumin/Globulin Ratio Triglycerides Cholesterol LDL Cholesterol, Calc HDL Cholesterol 05/14/19 05/14/19 05:45 05:45 WBC RBC Hgb Hct MCV MCH MCHC RDW Plt Count Neut % (Auto) Lymph % (Auto) Beauregard % (Auto) Eos % (Auto) Baso % (Auto) Neut # (Auto) Lymph # (Auto) Beauregard # (Auto) Eos # (Auto) Baso # (Auto) PT INR APTT Sodium 139 Potassium 4.4 Chloride 104 Carbon Dioxide 29 BUN 20 H Creatinine 0.60 Estimated GFR > 60.0 BUN/Creatinine Ratio 33.3 H Glucose 136 H Hemoglobin A1c 7.5 H Calcium 8.5 Total Bilirubin 0.7 AST 29 ALT 33 Alkaline Phosphatase 80 Total Protein 6.5 Albumin 3.6 Globulin 2.9 Albumin/Globulin Ratio 1.2 Triglycerides 266 H Cholesterol 213 H LDL Cholesterol, Calc 130 H HDL Cholesterol 30 L Discharge Plan Discharge Plan Patient Disposition: [facility] Transfer to: [facility] Under care of provider: Dr. Carmichael, hospitalist and Stas Piedra, vascular PA Discharge Med Rec/Prescriptions Prescriptions: New aspirin 81 mg Tablet,Delayed Release (Dr/Ec) 81 mg PO DAILY Qty: 30 RF: 0 atorvastatin 40 mg tablet 40 mg PO BEDTIME Qty: 30 RF: 0 Continued naproxen 500 MG tablet 1 tab PO BIDCC Qty: 60 RF: 11 venlafaxine 75 MG tablet extended release 24hr 225 mg PO QDAY Qty: 270 RF: 3 gabapentin [Neurontin] 400 MG capsule 400 cap PO SEE INSTRUCTIONS Qty: 150 RF: 3 cyclobenzaprine 10 MG tablet 1 tab PO BID PRN (Reason: Back Pain) RF: 0 hydrocodone-acetaminophen 10 MG/325 MG tablet 1 tab PO Q6HP PRN (Reason: Back Pain) RF: 0 hydrocodone-acetaminophen 10 MG/325 MG tablet 1 tab PO Q6HP PRN (Reason: antidepressant) RF: 0 acetaminophen [Tylenol Extra Strength] 500 mg Tablet 1,000 mg PO TID RF: 0 Lidocaine Pain Relief 4 % Adhesive Patch,Medicated 1 patch TOPICAL DAILY PRN (Reason: Back Pain) RF: 0 Follow up/Referrals: Myron Lacy MD [Primary Care Provider] - Provider Discharge Instructions Diet: Low-fat, Low-sodium and Low-cholesterol Activity: Activity as tolerated with PT/OT Discharge Data Primary Care Provider: Myron Lacy Attending Provider: Champ Hanks Admit Date/Time: 05/14/19 00:49 Quality VTE Deep Vein Thrombosis/Pulmonary Embolism Present on Admission: No
[2019-05-14] MEDS: HYDROCODONE/ACET 10/325 TABLET 1 TAB PO (15:37)
--- NOTE | 2019-05-14 15:39 | PC.NURSE ---
Transfer to [place]: Patient agreeable and aware of plan to transport to [place] for higher level care. NIH score 3 this morning, no changes or deterioration in neuro status since then. Tele monitoring ongoing. Will d/c with IV site in place. Report called by this headline writer to BRITTANY Bartholomew at [place], and gave her a good call-back # here should any questions arise.
--- NOTE | 2019-05-14 15:47 | PC.NURSE ---
Addendum entered by Summer Quinones R.N. 05/14/19 16:40: Transportation here @ 1620 to transport to [facility]. Original Note: Pt assisted to [facility] w/o incidence. Med w/[facility] as per MD orders prior to transfer. Transfering to Prov
--- NOTE | 2019-05-14 16:52 | CM.DANOTE ---
Discharge Planning/Care Management DCP: assessment: case received and discussed this morning in Team Rounds. Dr. Gandara noted that she was in process of assessing for full dx and POC and that pt may well transfer to a higher level of specialty care. Pt is a 69 year old female who lives on [facility]. She admitted early this morning to care of hospitalist team. PCP: Myron Lacy. Payer: Medicare and [employer]. A check in now shows pt is in process of transfer to [facility] as coordinated by Dr. Gandara and the RN coordinator on for the day. CM Discharge Assessment Start: 05/14/19 16:52 Freq: Status: Discharge Protocol: Document 05/14/19 16:52 ITV (Rec: 05/14/19 16:52 ITV [id number]) Discharge Planning Assessment Advance Directives? Yes History Provided By Medical Record Prior Living Arrangements House Household Members friend(s) Review Status In Process
== END 2019-05-14 16:20 | disposition short-term general hospital (02) | DRG 66 ==
LOC: ED 23:54 → AC 05-14 00:50
PROVIDERS: Admitting Provider Nurse Practitioner Adult Health; Emergency Provider Emergency Medicine; Family Provider Family Medicine; PCP Family Medicine; Visit Provider Nurse Practitioner Adult Health
DX: I63.231 Cerebral infarction due to unspecified occlusion or stenosis of right carotid arteries (principal); R47.01 Aphasia; R27.8 Other lack of coordination; R29.810 Facial weakness; R29.705 NIHSS score 5; E11.9 Type 2 diabetes mellitus without complications; F17.210 Nicotine dependence, cigarettes, uncomplicated; R42 Dizziness and giddiness; R03.0 Elevated blood-pressure reading, without diagnosis of hypertension
CPT/HCPCS: 36415; 36591; 70450; 70496; 70498; 80048; 80053; 80061; 83036; 85025; 85610; 85730; 92610; 93005; 93306; 93880; 94762; 97161; 97530; 99283; J1170; Q9967

== ENCOUNTER → 2019-12-07 10:31 | Outpatient (CLI) | payer MEDICARE, SELFPAY ==
[2019-05-14 02:05] VITALS: BMI 35.4
--- NOTE | 2019-12-07 | DI.RAD.S_ITS ---
PROCEDURE: XR HIP W PEL IF DONE RT 2V INDICATIONS: HIP PAIN TECHNIQUE: AP pelvis with lateral view(s) of the right hip(s). COMPARISON: [facility], , XR HIP W PEL IF DONE RT 2V, 04/02/2019, 10:14. FINDINGS: Bones: No fractures or dislocations. Pelvic ring appears intact. No suspicious bony lesions. Lower lumbar spondylosis. Mild bilateral hip joint degeneration. Prominent marginal osteophyte formation on the right. Soft tissues: The visualized bowel gas pattern is normal. No suspicious soft tissue calcifications. Contrast material projects in the bladder. IMPRESSION: Mild bilateral hip degeneration Lower lumbar spondylosis Dictated by: Srinivas Blair M.D. on 12/07/2019 at 13:25 Approved by: Srinivas Blair M.D. on 12/07/2019 at 13:27
--- NOTE | 2019-12-07 | DI.RAD.S_ITS ---
PROCEDURE: XR LUMBAR SPINE 2-3V INDICATIONS: LOW BACK PAIN TECHNIQUE: 3 and views of the lumbar spine were acquired. COMPARISON: None. FINDINGS: Bones: No fracture or focal osseous destruction. Multilevel degenerative endplate sclerosis and spurring. Diffuse facet arthropathy. Mild grade 1 retrolisthesis of L1 on L2 grade 1 retrolisthesis of L2 on L3 and L3 on L4. Severe narrowing of the L4-L5 disc space. Mild to moderate narrowing of the remaining lumbar disc spaces. Lateral curvature of the spine. Soft tissues: Overlying bowel gas pattern is normal. No suspicious soft tissue calcifications. IMPRESSION: Diffuse lumbar spondylosis and facet arthropathy most pronounced at L4-L5. Multilevel spondylolisthesis as above. Dictated by: Srinivas Blair M.D. on 12/07/2019 at 13:14 Approved by: Srinivas Blair M.D. on 12/07/2019 at 13:16
[2019-12-07 11:06] LABS: BUN Creatinine Ratio 31.1 (6-22); Blood Urea Nitrogen 23 mg/dL (7-17); Calcium 9.8 mg/dL (8.4-10.2); Carbon Dioxide 27 mmol/L (22-32); Chloride 106 mmol/L (98-107); Estimated Glomerular Filt Rate > 60.0 mL/min (>60); Glucose 116 mg/dL (80-110); HEMOLYSIS < 15 (0-50); Sodium 141 mmol/L (137-145)
--- NOTE | 2019-12-07 11:59 | DI.CT.S_ITS ---
PROCEDURE: CT LUMBAR SPINE W CON INDICATIONS: Lower back pains, reported prior history of endometrial cancer. TECHNIQUE: After the administration of intravenous Isovue contrast, 3 mm thick sections acquired through the levels of interest. Sagittal and coronal reformats were then constructed. For radiation dose reduction, the following was used: automated exposure control. COMPARISON: [facility], CT, CT HEAD/BRAIN WO/W CON, 04/02/2019, 12:11. [facility], PELVIC COMPLETE, 08/01/2017, 11:33. [facility], PELVIC COMPLETE, 08/01/2017, 11:33. FINDINGS: Image quality: Excellent. Bones: No osteolytic or blastic lesions found. Mild to moderate degenerative disc disease is present best seen at L4-5 where near [id number] articulation is present at the left margin of the disc space. Soft tissues: At the lowest imaging margin that includes a portion of the presacral base and posterior extraperitoneal pelvis there are 2 ovoid soft tissue masses not fully included on the examination one each bilaterally and measuring up to 3.1 x 2.4 cm on the right and 2.7 x 2.1 cm on the left. These appear to likely represent malignant lymph nodes. IMPRESSION: 1. Relatively mild degenerative disc disease is present except at L4-L5 as noted, no osteolytic or blastic bone lesion is found. 2. There is an unexpected finding of what appears to be malignant metastatic disease enlarging lymph nodes within the pelvis at the lowest imaging margin of this study, not fully included in the examination. A staging CT of the chest/abdomen/pelvis appears warranted based on this finding, and should be performed with both oral and intravenous contrast. Dictated by: Demario Huff M.D. on 12/07/2019 at 16:34 Approved by: Demario Huff M.D. on 12/07/2019 at 16:40
== END ==
PROVIDERS: Family Provider Family Medicine; PCP Family Medicine; Referring Provider Family Medicine; Visit Provider Family Medicine
DX: Z01.812 Encounter for preprocedural laboratory examination (principal); C54.1 Malignant neoplasm of endometrium; R59.0 Localized enlarged lymph nodes; M51.36 Other intervertebral disc degeneration, lumbar region; M54.42 Lumbago with sciatica, left side; M54.41 Lumbago with sciatica, right side; M25.551 Pain in right hip; G89.29 Other chronic pain
CPT/HCPCS: 36415; 72100; 72132; 73502; 80048; Q9967

== ENCOUNTER → 2019-12-20 10:44 | Outpatient (CLI) | payer MEDICARE, SELFPAY ==
[2019-05-14 02:05] VITALS: BMI 35.4
--- NOTE | 2019-12-20 | DI.CT.S_ITS ---
PROCEDURE: CT CHEST ABD PEL W CON INDICATIONS: MALIGNANT NEOPLASM OF EDOMETRIUM PAIN TECHNIQUE: After the administration of oral and intravenous contrast, 5 mm thick sections acquired from the lung apices to the symphysis. 5 mm coronal and sagittal reformats were performed, with additional 7 mm coronal MIP reformats through the lungs. For radiation dose reduction, the following was used: automated exposure control, adjustment of mA and/or kV according to patient size. COMPARISON: [facility], [place], PELVIC COMPLETE, 08/01/2017, 11:33. FINDINGS: Image quality: Excellent. CHEST: Lungs and pleura: Nodular thickening of the right hemidiaphragm. There is a small right pleural effusion. A transverse tip density in the right lower lobe is most likely atelectasis. No acute airspace opacities. No pleural effusions or pneumothorax. Central and peripheral airways appear patent and normal in caliber. Mediastinum: There is a 2.5 x 2.9 cm cyst in the right cardiophrenic angle, most likely a pericardial cyst. Heart size is normal. No pericardial effusion. No mediastinal or hilar adenopathy by size criteria. Thoracic aorta and central pulmonary arteries are normal in size. Esophagus is normal in caliber. No hiatal hernia. Chest wall: No axillary or supraclavicular adenopathy by size criteria. Thyroid gland is normal. ABDOMEN: Solid organs: Liver is normal in size and enhancement. Gallbladder is normal. Biliary system is non dilated. Pancreas enhances normally. Spleen is normal in size and enhancement. No adrenal nodules. Kidneys demonstrate normal size and enhancement, without hydronephrosis. Peritoneum and bowel: There is a large soft tissue mass with lobulated contour along the inferior peritoneum measuring 6.3 x 10.4 x 6.1 cm. There is a small amount of ascites. In addition, there is a bilobed mass in right adnexa along the right broad ligament measuring 4.5 x 3.1 x 6.6 cm. In the left adnexa, there is a 2.6 x 2.1 cm oval-shaped structure, likely the left ovary. Bowel loops demonstrate normal wall thickness and caliber. No free fluid or air. Nodes and vessels: There is a 1.6 x 2.4 cm soft tissue mass in the mesentery, consistent with metastases. No retroperitoneal adenopathy by size criteria. Aorta and inferior vena cava are normal in size. Miscellaneous: No ventral hernias. PELVIS: Genitourinary: Bladder wall thickness is normal. Uterus is absent. Miscellaneous: No inguinal hernias. Mildly enlarged inguinal lymph nodes are present bilaterally measuring 1.2 cm on the left and 1.0 cm on the right. Bones: There is a 7 mm lucency in the right iliac bone, suspicious for metastasis. No vertebral body compression fractures. IMPRESSION: 1. A large 6.3 x 10.4 x 6.1 cm soft tissue mass with lobulated contour along the inferior peritoneum consistent with metastases. 2. A bilobed 4.5 x 3.1 x 6.6 cm mass in right adnexa along the right broad ligament, consistent with metastasis. 3. A 2.6 x 2.1 cm soft tissue nodule in the left adnexa, probably the left ovary. Pelvic ultrasound is suggested for further evaluation. 4. A 1.6 x 2.4 cm soft tissue mass in the mesentery, consistent with metastases. 5. Nodular thickening of the right hemidiaphragm and a small right pleural effusion, suspicious for metastasis. 6. Small amount of ascites. 7. A 7 mm lucency in the right iliac bone, suspicious for metastasis. MRI with and without contrast is recommended for followup evaluation. 8. A 2.5 x 2.9 cm right pericardial cyst. Dictated by: Mya Garcia M.D. on 12/20/2019 at 14:02 Approved by: Mya Garcia M.D. on 12/20/2019 at 15:38
--- NOTE | 2019-12-20 | DI.CT.S_ITS ---
PROCEDURE: CT LE RT W CON INDICATIONS: MALIGNANT NEOPLASM OF EDOMETRIUM PAIN TECHNIQUE: After the administration of intravenous contrast, 3 mm axial sections acquired of the pelvis, with coronal and sagittal reformats. COMPARISON: None. FINDINGS: Image quality: Excellent. Bones: No fracture or dislocation. There is a 7 mm lucency in the right iliac bone. 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 Soft tissues: Soft tissue masses are seen in the right pelvis. A small amount of free fluid is present. IMPRESSION: 1. A 7 mm lucency in the right iliac bone. MRI with and without contrast is suggested for further evaluation. 2. 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 3. Soft tissue masses and a small amount of free fluid in pelvis. Please see separate CT abdomen/pelvis detail. Dictated by: Mya Garcia M.D. on 12/20/2019 at 14:31 Approved by: Mya Garcia M.D. on 12/20/2019 at 17:59
[2019-12-20 11:23] LABS: Alanine Aminotransferase 17 IU/L (<35); Albumin 4.5 g/dL (3.5-5.0); Albumin Globulin Ratio 1.1 (1.0-2.8); Alkaline Phosphatase 133 U/L (38-126); Aspartate Aminotransferase 28 IU/L (14-36); BUN Creatinine Ratio 33.3 (6-22); Bilirubin Total 0.7 mg/dL (0.2-1.3); Blood Urea Nitrogen 26 mg/dL (7-17); Calcium 10.1 mg/dL (8.4-10.2); Carbon Dioxide 25 mmol/L (22-32); Chloride 105 mmol/L (98-107); Estimated Glomerular Filt Rate > 60.0 mL/min (>60); Glucose 162 mg/dL (80-110); HEMOLYSIS < 15 (0-50); Potassium 4.7 mmol/L (3.4-5.1); Sodium 139 mmol/L (137-145); Total Protein 8.5 g/dL (6.3-8.2)
== END ==
PROVIDERS: Family Provider Family Medicine; PCP Family Medicine; Referring Provider Family Medicine; Visit Provider Family Medicine
DX: Z01.812 Encounter for preprocedural laboratory examination (principal); C54.1 Malignant neoplasm of endometrium; C79.89 Secondary malignant neoplasm of other specified sites; R59.0 Localized enlarged lymph nodes; R18.8 Other ascites; I31.8 Other specified diseases of pericardium; J90 Pleural effusion, not elsewhere classified; M25.551 Pain in right hip; M16.0 Bilateral primary osteoarthritis of hip; M47.898 Other spondylosis, sacral and sacrococcygeal region; E11.9 Type 2 diabetes mellitus without complications
CPT/HCPCS: 36415; 71260; 73701; 74177; 80053; Q9967